=== PATIENT | male | born 1935 | race Caucasian/White ===

== ENCOUNTER → 2016-10-28 | Outpatient (CLI) | payer MEDICARE, BC ==
--- NOTE | 2016-10-28 13:06 | RADIOLOGY REPORT (SQ) ---
EXAM DESCRIPTION: VENOUS UNILATERAL LOWER COMPLETED DATE/TIME: 10/28/2016 12:54 pm REASON FOR STUDY: RLE PAIN, SWELLING M79.604 PAIN IN RIGHT LEG COMPARISON: None. TECHNIQUE: Dynamic and static dias scale and color images acquired of the right leg venous system. S elected spectral images acquired with additional compression and augmentation maneuvers. The contrala teral common femoral vein and saphenofemoral junction were also imaged. Images stored on PACS. LIMITATIONS: None. FINDINGS: RIGHT COMMON FEMORAL: Normal phasicity, compression and augmentation. No visualized echogenic material on g ray scale. No defects on color images. FEMORAL: Normal compression and augmentation. No visualized echogenic material on dias scale. No defe cts on color images. POPLITEAL: Normal compression, augmentation. No visualized echogenic material on dias scale. No defec ts on color images. CALF VESSELS: Normal compression, augmentation. No visualized echogenic material on dias scale. No de fects on color images. GSV : Normal compression, augmentation. No visualized echogenic material on dias scale. No defects on color images. LSV: The lesser saphenous vein in the calf demonstrates flow. There is echogenic material in the hudson men of the vein which has a characteristic appearance for recannulized chronic thrombus. ANY DEEP VENOUS INSUFFICIENCY: Not evaluated. ANY EVIDENCE OF POPLITEAL CYST: No. OTHER: No other significant finding. LEFT COMMON FEMORAL VEIN AND SAPHENOFEMORAL JUNCTION: Normal phasicity, compression and augmentation. No visualized echogenic material on dias scale. No de fects on color images. IMPRESSION: NO EVIDENCE OF ACUTE DVT OR SVT IN THE RIGHT LEG. TECHNICAL DOCUMENTATION: JOB ID: [id number] [employer]- All Rights Reserved
[2016-10-28 14:31] LABS: ALBUMIN 3.5 g/dL (3.5-5.0); ANION GAP 14 (5-19); BLOOD UREA NITROGEN 15 mg/dL (7-20); CALCIUM 8.3 mg/dL (8.4-10.2); CARBON DIOXIDE 33 mmol/L (22-30); CHLORIDE 91 mmol/L (98-107); CREATININE RESULT 1.37 mg/dL (0.52-1.25); GLUCOSE 115 mg/dL (75-110); PHOSPHORUS 2.1 mg/dL (2.5-4.5); SODIUM 138.2 mmol/L (137-145)
[2016-10-28 14:39] LABS: POTASSIUM 2.9 mmol/L (3.6-5.0)
== END ==
LOC: SP 11:52
PROVIDERS: ATTEND Physician Assistant
DX: M79.604 Pain in right leg (principal); E87.6 Hypokalemia; J90 Pleural effusion, not elsewhere classified
CPT/HCPCS: 36415; 80069; 93971

== ENCOUNTER → 2017-01-08 | Outpatient (CLI) | payer MEDICARE, BC ==
--- NOTE | 2017-01-08 13:45 | RADIOLOGY REPORT (SQ) ---
EXAM DESCRIPTION: NM WHOLE BODY BONE SCAN COMPLETED DATE/TIME: 01/08/2017 12:44 pm REASON FOR STUDY: PROSTATE CA (C61), ELEVATED PSA (R97.20) C61 MALIGNANT NEOPLASM OF PROSTATE COMPARISON: Two-view chest 02/28/2016 RADIONUCLIDE AND DOSE: 19.7 millicuries Tc99m MDP. The route of agent administration: Intravenous. ADDITIONAL DRUGS AND DOSES: None. TECHNIQUE: Routine delayed images at 3 hours post radionuclide injection acquired of the bony skelet on including anterior and posterior whole-body projections and additional focused images as needed. LIMITATIONS: None. FINDINGS: BONES: There are multiple foci of abnormal increased uptake throughout the calvarium, bila teral proximal humeri, ribs, manubrium sternum, thoracic and lumbar spine, bony pelvis, bilateral pro ximal femurs. These are worrisome for metastatic prostate carcinoma. KIDNEYS: Symmetric excretion without obstruction. OTHER: No other significant finding. IMPRESSION: Multiple foci of increased uptake throughout the skeleton compatible with metastatic dis ease COMMENT: Quality measure 147: Current bone scan is compared with any available plain radiographs, p rior bone scans, and CT/MRI. TECHNICAL DOCUMENTATION: JOB ID: [id number] [employer]- All Rights Reserved
== END ==
LOC: RAD 08:23
PROVIDERS: ATTEND Radiology Radiation Oncology
DX: C61 Malignant neoplasm of prostate (principal); R97.20 Elevated prostate specific antigen [PSA]
CPT/HCPCS: 78306; A9561; Q9969

== ENCOUNTER 2017-01-11 15:32 | Inpatient (IN) | payer MEDICARE, BC ==
[2017-01-11] MEDS ORDERED: NORMAL SALINE 1000 ML 1,000 ML IV PRN (15:41)
[2017-01-11] MEDS ORDERED: ONDANSETRON HCL INJ/PF 4 MG/2 ML SDV IV ONE (15:41)
--- NOTE | 2017-01-11 15:45 | ER Document Report ---
ED Medical Screen (RME) - General Chief Complaint: Nausea Stated Complaint: NAUSEA,WEAKNESS Time Seen by Provider: 01/11/17 15:41 Mode of Arrival: Wheelchair Information source: Patient TRAVEL OUTSIDE OF THE [place] IN LAST 30 DAYS: No - HPI Patient complains to provider of: Nausea, confusion Notes: 01/11/17 15:45 Patient is an 82-year-old male with a history of COPD as well as prostate cancer with bone metastases, who presents to the emergency room today complaining of nausea, he denies any vomiting, denies any pain, no fever or chills, patient appears to be somewhat confused in the triage area as he is slow to answer questions and at times just stares at me, no family members have accompanied him to the emergency room as of yet 01/11/17 15:50 Patient sister is now in the emergency room and reports that for the last 3-4 days patient has not been eating or drinking very much, he appears more pale than usual, and when they went to see the radiation oncologist today he recommended that patient be brought to the emergency room as he was diaphoretic , pale and complaining of nausea, he has also lost a couple of pounds in the last week - Related Data Allergies/Adverse Reactions: promethazine HCl [From Phenergan] Adverse Reaction (Verified 01/11/17 15:39) Altered mental status Past Medical History - Past Medical History Cardiac Medical History: Reports: Hx Atrial Fibrillation - rvr, Hx Congestive Heart Failure, Hx Coronary Artery Disease, Hx Heart Attack, Hx Hypercholesterolemia, Hx Hypertension, Hx Peripheral Vascular Disease Denies: Hx DVT, Hx Pulmonary Embolism, Hx Heart Murmur Pulmonary Medical History: Reports: Hx Bronchitis, Hx COPD, Hx Pneumonia Denies: Hx Asthma, Hx Respiratory Failure, Hx Sleep Apnea, Hx Tuberculosis Neurological Medical History: Denies: Hx Cerebrovascular Accident, Hx Seizures Endocrine Medical History: Denies: Hx Diabetes Mellitus Type 1, Hx Diabetes Mellitus Type 2, Hx Hyperthyroidism, Hx Hypothyroidism Renal/ Medical History: Reports: Hx Kidney Stones. 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 GI Medical History: Denies: Hx Cirrhosis, Hx Crohn's Disease, Hx Gastroesophageal Reflux Disease, Hx Hepatitis, Hx Hiatal Hernia, Hx Irritable Bowel, Hx Liver Failure, Hx Ulcer Musculoskeltal Medical History: Denies Hx Arthritis, Denies Hx Multiple Sclerosis Psychiatric Medical History: Denies: Hx Dementia, Hx Depression Infectious Medical History: Reports: Hx MRSA - History of MRSA pneumonia. Denies: Hx Hepatitis Past Surgical History: Reports: Hx Abdominal Surgery - hernia, Hx Cardiac Surgery - Pacemaker August 2011, bypass, Hx Cholecystectomy, Hx Coronary Artery Bypass Graft, Hx Herniorrhaphy, Hx Inguinal Hernia, Hx Pacemaker. Denies: Hx Appendectomy, Hx Bowel Surgery, Hx Colostomy, Hx Gastric Bypass Surgery, Hx Tonsillectomy - Immunizations Immunizations up to date: Yes Hx Diphtheria, Pertussis, Tetanus Vaccination: Yes Physical Exam - Vital signs Vitals: Temp Pulse Resp BP Pulse Ox 97.4 F 72 22 H 98/65 L 94 01/11/17 15:37 01/11/17 15:37 01/11/17 15:37 01/11/17 15:37 01/11/17 15:37 Course - Vital Signs Vital signs: Temp Pulse Resp BP Pulse Ox 97.4 F 72 22 H 98/65 L 94 01/11/17 15:37 01/11/17 15:37 01/11/17 15:37 01/11/17 15:37 01/11/17 15:37
[2017-01-11 16:26] LABS: VENOUS BLOOD BASE EXCESS -2.6 mmol/L; VENOUS BLOOD HCO3 22.4 mmol/L (20-32); VENOUS BLOOD PCO2 39.6 mmHg (35-63); VENOUS BLOOD PH 7.37 (7.30-7.42)
[2017-01-11 16:27] LABS: ABSOLUTE LYMPHOCYTES (AUTO) 0.7 10^3/uL (0.5-4.7); ABSOLUTE MONOCYTES (AUTO) 0.9 10^3/uL (0.1-1.4); ABSOLUTE NEUT (AUTO) 9.3 10^3/uL (1.7-8.2); BASOPHILS % (AUTO) 0.3 % (0-2); EOSINOPHILS % (AUTO) 0.4 % (0-6); HEMATOCRIT 33.4 % (37.9-51.0); HEMOGLOBIN 10.9 g/dL (13.5-17.0); HGB HCT DIFFERENCE -0.7; LYMPHOCYTES % (AUTO) 6.3 % (13-45); MEAN CORPUSCULAR HEMOGLOBIN 30.5 pg (27.0-33.4); MEAN CORPUSCULAR HGB CONC 32.5 g/dL (32.0-36.0); MEAN CORPUSCULAR VOLUME 94 fl (80-97); MONOCYTES % (AUTO) 8.2 % (3-13); RED BLOOD COUNT 3.56 10^6/uL (4.35-5.55); RED CELL DISTRIBUTION WIDTH 21.6 % (11.5-14.0); SEGMENTED NEUTROPHILS % (AUTO) 84.8 % (42-78)
[2017-01-11 16:46] LABS: ALANINE AMINOTRANSFERASE 33 U/L (21-72); ALBUMIN 3.6 g/dL (3.5-5.0); ALKALINE PHOSPHATASE 376 U/L (38-126); ANION GAP 13 (5-19); ASPARTATE AMINO TRANSFERASE 135 U/L (17-59); BILIRUBIN,DIRECT 0.7 mg/dL (0.0-0.4); BILIRUBIN,TOTAL 1.2 mg/dL (0.2-1.3); BLOOD UREA NITROGEN 31 mg/dL (7-20); CALCIUM 8.6 mg/dL (8.4-10.2); CARBON DIOXIDE 22 mmol/L (22-30); CHLORIDE 96 mmol/L (98-107); CREATININE RESULT 1.66 mg/dL (0.52-1.25); GLUCOSE 115 mg/dL (75-110); LIPASE 96.5 U/L (23-300); POTASSIUM 4.4 mmol/L (3.6-5.0); SODIUM 130.8 mmol/L (137-145); TOTAL PROTEIN 7.7 g/dL (6.3-8.2)
--- NOTE | 2017-01-11 17:23 | ER Document Report ---
ED General - General Mode of Arrival: Wheelchair Information source: Patient TRAVEL OUTSIDE OF THE [place] IN LAST 30 DAYS: No <FABI JERNIGAN - Last Filed: 01/11/17 20:36> <BLANCA HAM - Last Filed: 01/12/17 00:39> - General Chief Complaint: Nausea Stated Complaint: NAUSEA,WEAKNESS Time Seen by Provider: 01/11/17 15:41 Notes: Patient is a an 82-year-old male who presents to the emergency department today after being referred here by his oncologist after not looking well in the office today. Patient was confused and diaphoretic in the office. History is limited secondary to the patient's mental status. (FABI JERNIGAN) - Related Data Allergies/Adverse Reactions: promethazine HCl [From Phenergan] Adverse Reaction (Verified 01/11/17 15:39) Altered mental status Home Medications: Current Home Medications Atorvastatin Calcium [Lipitor 40 mg Tablet] 40 mg PO QHS 01/11/17 [History] Calcium Carbonate/Vitamin D3 [Calcium 600 + Vit D 400 Tablet] 1 tab PO DAILY 03/19 [History] Hydrochlorothiazide [Hydrodiuril 25 mg Tablet] 25 mg PO QAM 01/11/17 [History] Metoprolol Tartrate [Lopressor 100 mg Tablet] 100 mg PO DAILY 01/11/17 [History] Multivitamin/Iron/Folic Acid [Centrum Adults Tablet] 1 each PO DAILY 01/11/17 [ History] Omeprazole 20 mg PO QPM 01/11/17 [History] Potassium Chloride [K-Tab ER] 20 meq PO BID 01/11/17 [History] Spironolactone [Aldactone 25 mg Tablet] 25 mg PO QAM 01/11/17 [History] Warfarin Sodium [Coumadin 5 mg Tablet] 5 mg PO QHS 01/11/17 [History] Past Medical History - General Information source: Patient - Social History Smoking Status: Never Smoker Cigarette use (# per day): No Chew tobacco use (# tins/day): No Frequency of alcohol use: None Drug Abuse: None Lives with: Family Family History: Reviewed & Not Pertinent, Hypertension - Past Medical History Cardiac Medical History: Reports: Hx Atrial Fibrillation - rvr, Hx Congestive Heart Failure, Hx Coronary Artery Disease, Hx Heart Attack, Hx Hypercholesterolemia, Hx Hypertension, Hx Peripheral Vascular Disease Pulmonary Medical History: Reports: Hx Bronchitis, Hx COPD, Hx Pneumonia Renal/ Medical History: Reports: Hx Kidney Stones Malignancy Medical History: Reports Hx Bone Cancer - METS FROM PROSTATE, Reports Hx Prostate Cancer, Reports Hx Skin Cancer - Prior excision of several skin cancers. Infectious Medical History: Reports: Hx MRSA - History of MRSA pneumonia Past Surgical History: Reports: Hx Abdominal Surgery - hernia, Hx Cardiac Surgery - Pacemaker August 2011, bypass, Hx Cholecystectomy, Hx Coronary Artery Bypass Graft, Hx Herniorrhaphy, Hx Inguinal Hernia, Hx Pacemaker - Immunizations Immunizations up to date: Yes Hx Diphtheria, Pertussis, Tetanus Vaccination: Yes Hx Pneumococcal Vaccination: 05/03/09 <FABI JERNIGAN - Last Filed: 01/11/17 20:36> Review of Systems - Review of Systems -: Yes ROS unobtainable due to patient's medical condition - confused <FABI JERNIGAN - Last Filed: 01/11/17 20:36> Physical Exam <FABI JERNIGAN - Last Filed: 01/11/17 20:36> <BLANCA HAM - Last Filed: 01/12/17 00:39> - Vital signs Vitals: Temp Pulse Resp BP Pulse Ox 97.4 F 72 22 H 98/65 L 94 01/11/17 15:37 01/11/17 15:37 01/11/17 15:37 01/11/17 15:37 01/11/17 15:37 - Notes Notes: Physical Exam: General: Alert. Chronically ill appearing. HEENT: Normocephalic. Atraumatic. PERRL. Extraocular movements intact. Oropharynx clear. Dry mucous membranes. Neck: Supple. Non-tender. Respiratory: No respiratory distress. Clear and equal breath sounds bilaterally. Cardiovascular: Regular rate and rhythm. Abdominal: Normal Inspection. Non-tender. No distension. Normal Bowel Sounds. Back: Non-tender. No deformity or step off. Extremities: Moves all four extremities. Upper extremities: Normal inspection. Normal ROM. Lower extremities: Normal inspection. No edema. Normal ROM. Neurological: Unable to state the date or where he is located, disoriented to time and place. Psychological: Normal affect. Normal Mood. Skin: Warm. Dry. Normal color. (FABI JERNIGAN) Course - Laboratory Result Diagrams: 01/11/17 16:21 01/11/17 16:21 <DELONFABI - Last Filed: 01/11/17 20:36> - Laboratory Result Diagrams: 01/11/17 16:21 01/11/17 16:21 - Diagnostic Test Radiology reviewed: Reports reviewed <BLANCA HAM - Last Filed: 01/12/17 00:39> - Re-evaluation Re-evalutation: 01/11 Patient is an 82-year-old male who with a history of prostate cancer who presents today with apparent nausea at home and confusion. The patient is alone in the room at the time that I am seeing him with no family present. The patient has no complaints. He does not know why he is here. He does not remember being sent in from his oncologist office. Patient did not have any abdominal pain and states that he is not nauseated currently. Patient with acute renal insufficiency and hypo-natremia. No evidence for infection at this time. Patient was hypotensive on presentation. Patient with no acute findings on abdominal series and no evidence for obstruction. No evidence for infection on chest x-ray or urine. However, due to the patient's symptoms and what is acute confusion, patient will be admitted for further evaluation at this time to the hospitalist service. (BLANCA HAM) - Vital Signs Vital signs: Temp Pulse Resp BP Pulse Ox 97.4 F 70 18 130/85 H 100 01/11/17 21:20 01/11/17 21:20 01/11/17 21:20 01/11/17 21:20 01/11/17 21:20 - Laboratory Laboratory results interpreted by me: 01/11/17 01/11/17 01/11/17 16:15 16:21 16:21 WBC 11.0 H RBC 3.56 L Hgb 10.9 L Hct 33.4 L RDW 21.6 H Plt Count 101 L Seg Neutrophils % 84.8 H Lymphocytes % 6.3 L Absolute Neutrophils 9.3 H Sodium 130.8 L Chloride 96 L BUN 31 H Creatinine 1.66 H Est GFR ( Amer) 48 L Est GFR (Non-Af Amer) 40 L Glucose 115 H Direct Bilirubin 0.7 H AST 135 H Alkaline Phosphatase 376 H Creatine Kinase 345 H Urine Protein Urine Blood 01/11/17 17:30 WBC RBC Hgb Hct RDW Plt Count Seg Neutrophils % Lymphocytes % Absolute Neutrophils Sodium Chloride BUN Creatinine Est GFR ( Amer) Est GFR (Non-Af Amer) Glucose Direct Bilirubin AST Alkaline Phosphatase Creatine Kinase Urine Protein 100 H Urine Blood SMALL H Discharge <FABI JERNIGAN - Last Filed: 01/11/17 20:36> - Discharge Admitting Provider: Hospitalist - [facility] Admitted: [facility] <BLANCA HAM - Last Filed: 01/12/17 00:39> - Discharge Clinical Impression: Encephalopathy acute ARF (acute renal failure) Qualifiers: Acute renal failure type: unspecified Qualified Code(s): N17.9 - Acute kidney failure, unspecified Condition: Stable Disposition: ADMITTED INPATIENT Scribe Attestation: 01/12/17 00:39 I personally performed the services described in the documentation, reviewed and edited the documentation which was dictated to the scribe in my presence, and it accurately records my words and actions. (BLANCA HAM) Scribe Documentation - Scribe Written by Carissa:: Carissa Nicole, 01/11/20172055 acting as scribe for :: Madeleine <FABI JERNIGAN - Last Filed: 01/11/17 20:36>
--- NOTE | 2017-01-11 17:51 | RADIOLOGY REPORT (SQ) ---
EXAM DESCRIPTION: CT HEAD WITHOUT COMPLETED DATE/TIME: 01/11/2017 5:38 pm REASON FOR STUDY: confusion, vomiting COMPARISON: July 2015 TECHNIQUE: Axial images acquired through the brain without intravenous contrast. Images reviewed wi th bone, brain and subdural windows. Images stored on PACS. All CT scanners at this facility use dose modulation, iterative reconstruction, and/or weight based d osing when appropriate to reduce radiation dose to as low as reasonably achievable (ALARA). [facility]: Dose Right [facility]: CareDose [facility]: Dose Right [facility]: Teradose 4D [facility]: yourdelivery RADIATION DOSE: Up-to-date CT equipment and radiation dose reduction techniques were employed. CTDIv ol: 64.6 mGy. DLP: 1163 mGy-cm.mGy. LIMITATIONS: None. FINDINGS: VENTRICLES: Prominent. CEREBRUM: No masses. No hemorrhage. No midline shift. Areas of low density in the white matter mos t likely due to chronic micro-vascular ischemic change. No evidence for acute infarction. CEREBELLUM: No masses. No hemorrhage. No alteration of density. No evidence for acute infarction. EXTRAAXIAL SPACES: Age-related involutional change. No fluid collections. No masses. ORBITS AND GLOBE: No intra- or extraconal masses. Normal contour of globe without masses. CALVARIUM: No fracture. PARANASAL SINUSES: No fluid or mucosal thickening. SOFT TISSUES: No mass or hematoma. OTHER: No other significant finding. IMPRESSION: CHRONIC CHANGES OF ATROPHY AND MICROVASCULAR ISCHEMIA. NO ACUTE PROCESS. TECHNICAL DOCUMENTATION: JOB ID: [id number] Quality ID # [id number]: Final reports with documentation of one or more dose reduction techniques (e.g., Au tomated exposure control, adjustment of the mA and/or kV according to patient size, use of iterative reconstruction technique) 2010 [employer]- All Rights Reserved
[2017-01-11 17:52] LABS: APPEARANCE,URINE SLIGHTLY-CLOUDY; BILIRUBIN,URINE NEGATIVE (NEGATIVE); GLUCOSE, URINE NEGATIVE (NEGATIVE); KETONES,URINE NEGATIVE (NEGATIVE); LEUKOCYTE ESTERASE,URINE NEGATIVE (NEGATIVE); NITRITE,URINE NEGATIVE (NEGATIVE); PROTEIN,URINE 100 mg/dL (NEGATIVE); URINE SPECIFIC GRAVITY 1.015; UROBILINOGEN,URINE NEGATIVE mg/dL (<2.0)
--- NOTE | 2017-01-11 17:59 | RADIOLOGY REPORT (SQ) ---
EXAM DESCRIPTION: ACUTE ABDOMEN SERIES COMPLETED DATE/TIME: 01/11/2017 5:50 pm REASON FOR STUDY: hypotension, vomiting COMPARISON: 07/18/2015 NUMBER OF VIEWS: Three views. TECHNIQUE: Frontal chest, supine abdomen and upright abdomen radiographic images acquired. LIMITATIONS: None. FINDINGS: CHEST: Lungs clear of infiltrates. FREE AIR: None. No abnormal gas collections. BOWEL GAS PATTERN: Nonobstructive pattern. No dilated loops or air fluid levels. CALCIFICATIONS: No suspicious calcifications. HARDWARE: None in the abdomen. SOFT TISSUES: No gross mass or suggestion of organomegaly. BONES: Stable densely sclerotic bone lesions are present. OTHER: No other significant finding. IMPRESSION: Nonspecific abdomen. Densely sclerotic bone lesions that appear stable. TECHNICAL DOCUMENTATION: JOB ID: [id number] [employer]- All Rights Reserved
[2017-01-11 18:04] LABS: CREATINE KINASE MB 3.38 ng/mL (<4.55)
[2017-01-11 18:08] LABS: TROPONIN I 0.086 ng/mL
[2017-01-11] MEDS ORDERED: ACETAMINOPHEN 325 MG TABLET PO PRN (18:46)
--- NOTE | 2017-01-11 19:05 | PDOC H&P ---
History of Present Illness Admission Date/PCP: 01/11/17 18:20 SHAD REYNA MD Patient complains of: Poor appetite History of Present Illness: SONNY SNOWDEN is a 82 year old male who presents to our emergency room with complaints of decreased eating and drinking for the last few days. Patient is a poor historian and no one is in room. History obtained from nurse. Nurse states that sister reported that patient has not been eating for the last few days and she has noticed that he has been more confused. Nurse reports that sister states that he is confused regularly but it has worsened over the last few days. ER physician who did not know much about patient's presentation reported that patient presented to the Rad Onc physician where he noticed that patient did not appear well. ER physician states that patient was directed to the emergency room. ER physician notes that patient's creatinine is elevated from his baseline. She also notes that patient is not able to give much history. Patient was aware that he was in the hospital but did not remember how he arrived. Patient was alert and oriented to self and location only. Patient was not able to give year. Patient was able to give date of . Past Medical History Cardiac Medical History: Reports: Atrial Fibrillation - rvr, Congestive Heart Failure, Coronary Artery Disease, Myocardial Infarction, Hyperlipidema, Hypertension, Peripheral Vascular Disease Denies: DVT, Pulmonary Embolism, Heart Murmur Pulmonary Medical History: Reports: Bronchitis, Chronic Obstructive Pulmonary Disease (COPD), Pneumonia Denies: Asthma, Respiratory Failure, Sleep Apnea, Tuberculosis Neurological Medical History: Denies: Seizures Endocrine Medical History: Denies: Diabetes Mellitus Type 1, Diabetes Mellitus Type 2, Hyperthyroidism, Hypothyroidism Renal/ Medical History: Denies: End Stage Renal Disease Malignancy Medical History: Reports: Bone Cancer - METS FROM PROSTATE, Skin Cancer - Prior excision of several skin cancers. 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 Past Surgical History Past Surgical History: Reports: Cholecystectomy, Coronary Artery Bypass Graft, Herniorrhaphy, Pacemaker Denies: Appendectomy, Colostomy, Gastric Bypass Surgery, Tonsillectomy Social History Smoking Status: Never Smoker Frequency of Alcohol Use: None Hx Recreational Drug Use: No Drugs: None Hx Prescription Drug Abuse: No Family History Family History: Hypertension Parental Family History Reviewed: No - Unable to obtain due to patient's mental status Children Family History Reviewed: Unknown Sibling(s) Family History Reviewed.: Unknown Medication/Allergy Allergies/Adverse Reactions: promethazine HCl [From Phenergan] Adverse Reaction (Verified 01/11/17 15:39) Altered mental status Review of Systems ROS unobtainable: Due to mental status, Other - Pt does deny chest pain Physical Exam Vital Signs: Temp Pulse Resp BP Pulse Ox 97.4 F 72 22 H 98/65 L 94 01/11/17 15:37 01/11/17 15:37 01/11/17 15:37 01/11/17 15:37 01/11/17 15:37 General appearance: PRESENT: no acute distress, well-developed, well-nourished Head exam: PRESENT: atraumatic, normocephalic Eye exam: PRESENT: conjunctiva pink, EOMI. ABSENT: scleral icterus Mouth exam: PRESENT: dry mucosa Neck exam: ABSENT: carotid bruit, JVD, lymphadenopathy, thyromegaly Respiratory exam: PRESENT: clear to auscultation navi. ABSENT: rales, rhonchi, wheezes Cardiovascular exam: PRESENT: RRR. ABSENT: diastolic murmur, rubs, systolic murmur Pulses: PRESENT: normal dorsalis pedis pul Vascular exam: PRESENT: normal capillary refill GI/Abdominal exam: PRESENT: normal bowel sounds, soft. ABSENT: distended, guarding, mass, organolmegaly, rebound, tenderness Rectal exam: PRESENT: deferred Extremities exam: PRESENT: full ROM. ABSENT: calf tenderness, clubbing, pedal edema Neurological exam: PRESENT: alert, awake, oriented to person, oriented to place , CN II-XII grossly intact Psychiatric exam: PRESENT: appropriate affect, normal mood. ABSENT: homicidal ideation, suicidal ideation Skin exam: PRESENT: dry, warm Results Impressions: Head CT 01/11/17 17:26 IMPRESSION: CHRONIC CHANGES OF ATROPHY AND MICROVASCULAR ISCHEMIA. NO ACUTE PROCESS. Acute Abdomen Series 01/11/17 17:30 IMPRESSION: Nonspecific abdomen. Densely sclerotic bone lesions that appear stable. Assessment & Plan - Diagnosis (1) ARF (acute renal failure) Qualifiers: Is this a current diagnosis for this admission?: Yes Plan: Acute renal injury in setting of chronic kidney disease stage III: We will give patient IV fluids for volume expansion. Patient has had poor appetite at home. This is most likely related to patient's chronic illness. Patient has known metastatic prostate cancer and has been declining. Will order renal ultrasound to evaluate for possible obstruction. His baseline creatinine is around 1. (2) Dehydration Is this a current diagnosis for this admission?: Yes Plan: Continue with IV fluid administration. (3) Hyponatremia Is this a current diagnosis for this admission?: Yes Plan: Could possibly be secondary to SIADH given the fact the patient has metastatic prostate cancer or secondary to volume depletion. IV fluids and monitor sodium closely. (4) Prostate cancer metastatic to multiple sites Is this a current diagnosis for this admission?: Yes Plan: Per Oncology (5) Elevated LFTs Is this a current diagnosis for this admission?: Yes Plan: We will monitor. (6) Elevated troponin Is this a current diagnosis for this admission?: Yes Plan: Patient is chest pain-free. Elevated troponins are secondary to patient's acute renal injury. Will order additional troponins which should demonstrate decrease in troponins as patient becomes more volume expanded. (7) DVT prophylaxis Is this a current diagnosis for this admission?: Yes Plan: SCDs - Time Time Spent: 30 to 50 Minutes - Patient's CODE STATUS will need to be discussed with family. At time of my encounter there was no family present. Patient currently listed as full code. Patient would also benefit from palliative consult which will be placed. Patient has been placed under observation due to no acute findings except volume depletion. UA/urine culture have been obtained.
[2017-01-12 05:52] LABS: ALANINE AMINOTRANSFERASE 33 U/L (21-72); ALBUMIN 3.1 g/dL (3.5-5.0); ALKALINE PHOSPHATASE 340 U/L (38-126); ANION GAP 11 (5-19); ASPARTATE AMINO TRANSFERASE 115 U/L (17-59); BILIRUBIN,DIRECT 0.7 mg/dL (0.0-0.4); BILIRUBIN,TOTAL 1.1 mg/dL (0.2-1.3); BLOOD UREA NITROGEN 27 mg/dL (7-20); CARBON DIOXIDE 24 mmol/L (22-30); CHLORIDE 98 mmol/L (98-107); CREATINE KINASE 263 U/L (55-170); CREATININE RESULT 1.38 mg/dL (0.52-1.25); GLUCOSE 59 mg/dL (75-110); POTASSIUM 3.8 mmol/L (3.6-5.0); SODIUM 132.7 mmol/L (137-145); TOTAL PROTEIN 6.7 g/dL (6.3-8.2)
[2017-01-12] MEDS: LANSOPRAZOLE 15 MG TAB.RAP.DR PO SCH (06:08)
[2017-01-12 06:23] LABS: THYROID STIMULATING HORMONE 31.7 uIU/mL (0.47-4.68)
[2017-01-12 06:26] LABS: ABSOLUTE EOSINOPHILS # (AUTO) 0.1 10^3/uL (0.0-0.6); ABSOLUTE LYMPHOCYTES (AUTO) 0.8 10^3/uL (0.5-4.7); ABSOLUTE MONOCYTES (AUTO) 0.9 10^3/uL (0.1-1.4); ABSOLUTE NEUT (AUTO) 7.4 10^3/uL (1.7-8.2); BASOPHILS % (AUTO) 0.2 % (0-2); EOSINOPHILS % (AUTO) 0.8 % (0-6); LYMPHOCYTES % (AUTO) 8.7 % (13-45); MEAN CORPUSCULAR HGB CONC 34.6 g/dL (32.0-36.0); MEAN CORPUSCULAR VOLUME 93 fl (80-97); MONOCYTES % (AUTO) 9.5 % (3-13); RED BLOOD COUNT 3.14 10^6/uL (4.35-5.55); RED CELL DISTRIBUTION WIDTH 21.6 % (11.5-14.0); SEGMENTED NEUTROPHILS % (AUTO) 80.8 % (42-78); WHITE BLOOD COUNT 9.1 10^3/uL (4.0-10.5)
[2017-01-12] MEDS ORDERED: LEVOTHYROXINE SODIUM 0.075 MG TABLET PO ONE (09:30)
[2017-01-12] MEDS ORDERED: METOPROLOL TARTRATE 100 MG TABLET PO SCH (10:00)
--- NOTE | 2017-01-12 10:06 | RADIOLOGY REPORT (SQ) ---
EXAM DESCRIPTION: U/S RETROPERITON (RENAL/AORTA) COMPLETED DATE/TIME: 01/12/2017 7:05 am REASON FOR STUDY: Elevated Cr. COMPARISON: Right upper quadrant ultrasound 10/13/2013 CT abdomen pelvis 03/14/2014 [facility] 07/18/2015, 01/11/2017 TECHNIQUE: Dynamic and static grayscale images acquired of the kidneys and bladder and recorded on P ACS. Additional selected color Doppler and spectral images recorded. LIMITATIONS: Large patient, body habitus and bowel gas FINDINGS: RIGHT KIDNEY: Normal size, 12 cm in length. Normal echogenicity. No solid or suspicious ma sses. 2 cm cyst right mid-pole kidney. No hydronephrosis. No calcifications. LEFT KIDNEY: Normal size, 11.2 cm in length. Normal echogenicity. No solid or suspicious masses. 1 cm cyst left mid pole kidney. No hydronephrosis. No calcifications. BLADDER: No masses. OTHER FINDINGS: No other significant finding. IMPRESSION: NORMAL RENAL AND BLADDER ULTRASOUND. TECHNICAL DOCUMENTATION: JOB ID: [id number] [employer]- All Rights Reserved
[2017-01-12 10:33] LABS: PROTHROMBIN TIME 24.2 SEC (11.4-15.4)
[2017-01-12] MEDS: METOPROLOL SUCCINATE 50 MG TAB.SR.24H PO SCH ×2 (10:36→21:37)
[2017-01-12] MEDS: DOCUSATE SODIUM 100 MG CAPSULE PO SCH ×2 (10:36→18:01)
[2017-01-12] MEDS: NORMAL SALINE 1000 ML 1,000 ML IV PRN (16:03)
--- NOTE | 2017-01-12 17:43 | PDOC PROGRESS REPORT ---
Subjective Progress Note for:: 01/12/17 Subjective:: Patient remains quite confused today and is far from his baseline. He is oriented to self alone. He is examined with his sister at the bedside. Patient is noted to be quite tachypneic and he reports that he is a little short of breath. Admits to constipation. Patient denies chest pain, abdominal pain, nausea, vomiting, fevers, chills, diarrhea, headache, new onset weakness. Physical Exam Vital Signs: Temp Pulse Resp BP Pulse Ox 98.0 F 67 16 126/80 H 95 01/12/17 15:47 01/12/17 15:47 01/12/17 15:47 01/12/17 15:47 01/12/17 15:47 Intake & Output 01/11/17 01/12/17 01/13/17 06:59 06:59 06:59 Intake Total 0 300 Output Total 400 Balance 0 -100 Weight 103.4 kg Exam: General: Sallow appearing, awake alert and oriented x1, tachypneic HEENT: AT/NC, PERRL, EOMI, oropharynx is moist,, white plaques on tongue, no scleral icterus, no conjunctival injection Neck: No JVD, trachea midline Chest: Tachypneic, coarse bilaterally CV: IRR, no rub, or gallop; +2/6 SM apex Abdomen: Soft, nontender to palpation, nondistended, hypoactive bowel sounds; no rebound, rigidity, or guarding Extremities: No cyanosis, clubbing or edema Neuro: Cranial nerves II through XII are grossly intact without focal deficits; awake alert and oriented x1 Psych: Normal mood and affect Results Laboratory Results: 01/12/17 04:15 01/12/17 04:15 01/12/17 01/12/17 01/12/17 04:15 04:15 04:15 WBC 9.1 RBC 3.14 L Hgb 10.0 L Hct 29.0 L MCV 93 MCH 32.0 MCHC 34.6 RDW 21.6 H Plt Count 89 L Seg Neutrophils % 80.8 H Lymphocytes % 8.7 L Monocytes % 9.5 Eosinophils % 0.8 Basophils % 0.2 Absolute Neutrophils 7.4 Absolute Lymphocytes 0.8 Absolute Monocytes 0.9 Absolute Eosinophils 0.1 Absolute Basophils 0.0 Sodium 132.7 L Potassium 3.8 Chloride 98 Carbon Dioxide 24 Anion Gap 11 BUN 27 H Creatinine 1.38 H Est GFR ( Amer) > 60 Est GFR (Non-Af Amer) 50 L Glucose 59 L Calcium 8.0 L Total Bilirubin 1.1 AST 115 H ALT 33 Alkaline Phosphatase 340 H Total Protein 6.7 Albumin 3.1 L TSH 31.70 H Free T4 0.28 L 01/11/17 01/11/17 01/12/17 22:11 22:11 04:15 Creatine Kinase 311 H Troponin I 0.053 0.052 01/12/17 01/12/17 01/12/17 04:15 12:36 12:36 Creatine Kinase 263 H 243 H Troponin I 0.046 Impressions: Head CT 01/11/17 17:26 IMPRESSION: CHRONIC CHANGES OF ATROPHY AND MICROVASCULAR ISCHEMIA. NO ACUTE PROCESS. Acute Abdomen Series 01/11/17 17:30 IMPRESSION: Nonspecific abdomen. Densely sclerotic bone lesions that appear stable. Renal Ultrasound 01/12/17 00:00 IMPRESSION: NORMAL RENAL AND BLADDER ULTRASOUND. Assessment & Plan - Diagnosis (1) Pneumonia Qualifiers: Laterality: unspecified laterality Lung location: unspecified part of lung Is this a current diagnosis for this admission?: Yes Plan: Patient has a long history of COPD and prior pseudomonal pneumonias. Patient is quite tachypneic and has apparently been getting more tachypneic over the past several weeks. Now that patient is being rehydrated, have concerns for developing pneumonic process and will begin patient on nebulized treatments and Zosyn. Obtain chest x-ray. (2) Prostate cancer metastatic to multiple sites Is this a current diagnosis for this admission?: Yes Plan: Patient sister who is surrogate decision maker is at bedside and has elected to make him a DNR. Patient was sent from radiation oncology office and is no longer on chemotherapy. Patient has had broad spread of his prostate CA. Will discuss with family the idea of hospice. (3) Hypothyroid Qualifiers: Hypothyroidism type: unspecified Qualified Code(s): E03.9 - Hypothyroidism , unspecified Is this a current diagnosis for this admission?: Yes Plan: Place patient on Synthroid 75 mcg p.o. daily. Will monitor patient on telemetry for his history of atrial fibrillation. Feel that this contributing significantly to his acute encephalopathy. 03/14/14 01/12/17 17:06 04:15 TSH 4.77 H 31.70 H Free T4 0.28 L (4) ARF (acute renal failure) Qualifiers: Acute renal failure type: unspecified Qualified Code(s): N17.9 - Acute kidney failure, unspecified Is this a current diagnosis for this admission?: Yes Plan: Secondary to dehydration. Continue gentle hydration. (5) Dehydration Is this a current diagnosis for this admission?: Yes (6) Elevated LFTs Is this a current diagnosis for this admission?: Yes Plan: Secondary to underlying metastatic lesions from the prostate. (7) Encephalopathy acute Is this a current diagnosis for this admission?: Yes Plan: Multifactorial due to myxedema, sepsis, and metastatic prostate CA. (8) Chronic kidney disease, stage III (moderate) Is this a current diagnosis for this admission?: Yes (9) Anticoagulated on Coumadin Is this a current diagnosis for this admission?: Yes Plan: Continue home dose of Coumadin and monitor daily as patient is now on antibiotics (10) Atrial fibrillation Qualifiers: Atrial fibrillation type: chronic Qualified Code(s): I48.2 - Chronic atrial fibrillation Is this a current diagnosis for this admission?: Yes Plan: Continue metoprolol and Coumadin (11) COPD (chronic obstructive pulmonary disease) Qualifiers: COPD type: unspecified COPD Qualified Code(s): J44.9 - Chronic obstructive pulmonary disease, unspecified Is this a current diagnosis for this admission?: Yes (12) DVT prophylaxis Is this a current diagnosis for this admission?: Yes - Time Time Spent with patient: 35 or more minutes Medications reviewed and adjusted accordingly: Yes Anticipated discharge: Acute Rehab - Inpatient Certification Based on my medical assessment, after consideration of the patient's comorbidities, presenting symptoms, or acuity I expect that the services needed warrant INPATIENT care.: Yes I certify that my determination is in accordance with my understanding of Medicare's requirements for reasonable and necessary INPATIENT services [42 CFR 412.3e].: Yes Medical Necessity: Significant Comorbidiites Make Outpatient Treatment Too Risky , Need For IV Fluids, Need For Continuous Telemetry Monitoring, Need for IV Antibiotics Post Hospital Care: D/C Practice Administrator Documentation
[2017-01-12 18:04] LABS: APPEARANCE,URINE SLIGHTLY-CLOUDY; BILIRUBIN,URINE NEGATIVE (NEGATIVE); GLUCOSE, URINE NEGATIVE (NEGATIVE); KETONES,URINE NEGATIVE (NEGATIVE); LEUKOCYTE ESTERASE,URINE NEGATIVE (NEGATIVE); NITRITE,URINE NEGATIVE (NEGATIVE); PROTEIN,URINE 100 mg/dL (NEGATIVE); URINE SPECIFIC GRAVITY 1.013; UROBILINOGEN,URINE NEGATIVE mg/dL (<2.0)
--- NOTE | 2017-01-12 18:36 | RADIOLOGY REPORT (SQ) ---
EXAM DESCRIPTION: CHEST PA/LAT COMPLETED DATE/TIME: 01/12/2017 6:22 pm REASON FOR STUDY: tachypnea, ?pna COMPARISON: 02/20/2016 EXAM PARAMETERS: NUMBER OF VIEWS: two views TECHNIQUE: Digital Frontal and Lateral radiographic views of the chest acquired. RADIATION DOSE: NA LIMITATIONS: Low lung volumes. FINDINGS: LUNGS AND PLEURA: There is bibasilar atelectasis. No effusions. MEDIASTINUM AND HILAR STRUCTURES: No masses or contour abnormalities. HEART AND VASCULAR STRUCTURES: Heart is enlarged. No failure. BONES: No acute findings. HARDWARE: Unchanged. OTHER: No other significant finding. IMPRESSION: Basilar atelectasis. No focal consolidation. Findings are accentuated by low lung volu mes. TECHNICAL DOCUMENTATION: JOB ID: [id number] [employer]- All Rights Reserved
[2017-01-12] MEDS: NYSTATIN/DEXAMETH/DIPHEN SUSP 120 ML PO SCH ×2 (18:42→21:37)
[2017-01-12] MEDS: ONDANSETRON 4 MG TAB.RAPDIS PO PRN (19:06)
[2017-01-12] MEDS: PIPERACILLIN SODIUM/TAZOBACTAM 4.5 GM in NORMAL SALINE 100 ML IV SCH (21:36)
[2017-01-12] MEDS: ATORVASTATIN CALCIUM 40 MG TABLET PO SCH (21:37)
[2017-01-12] MEDS: WARFARIN SODIUM 5 MG TABLET PO SCH (21:37)
[2017-01-13] MEDS: PIPERACILLIN SODIUM/TAZOBACTAM 4.5 GM in NORMAL SALINE 100 ML IV SCH ×3 (02:56→18:52)
[2017-01-13] MEDS: LEVOTHYROXINE SODIUM 0.075 MG TABLET PO SCH (05:14)
[2017-01-13] MEDS: LANSOPRAZOLE 15 MG TAB.RAP.DR PO SCH (05:14)
[2017-01-13] MEDS: METOPROLOL SUCCINATE 50 MG TAB.SR.24H PO SCH ×2 (10:38→22:12)
[2017-01-13] MEDS: DOCUSATE SODIUM 100 MG CAPSULE PO SCH ×2 (10:38→18:11)
[2017-01-13] MEDS: NYSTATIN/DEXAMETH/DIPHEN SUSP 120 ML PO SCH ×4 (10:39→22:12)
[2017-01-13] MEDS ORDERED: DEXAMETHASONE SOD PHOS INJ 10 MG/1 ML VIAL IV ONE ×2 (14:46→19:00)
[2017-01-13] MEDS ORDERED: IPRATROPIUM/ALBUTEROL 0.5-2.5 MG/3 ML AMPUL NEB PRN (15:00)
[2017-01-13] MEDS: TRAMADOL HCL 50 MG TABLET PO SCH (18:11)
--- NOTE | 2017-01-13 18:20 | PDOC PROGRESS REPORT ---
Subjective Progress Note for:: 01/13/17 Subjective:: Met with patient's son and sister to discuss his overall prognosis and care. Family reports to me that patient continues to have a significant amount of pain during which time he will pray loudly or moaning quite loudly. He however very rarely will ask for anything for pain. He did however ask them for that one pill. He apparently takes some tramadol at home. Patient remains quite confused today. He appears to be breathing somewhat better. He reports in general that he feels bad. He is really unable to quantify this for me. Patient denies chest pain, abdominal pain, nausea, vomiting, fevers, chills, diarrhea, headache, new onset weakness. Physical Exam Vital Signs: Temp Pulse Resp BP Pulse Ox 97.9 F 70 18 134/66 H 98 01/13/17 16:15 01/13/17 16:15 01/13/17 16:15 01/13/17 16:15 01/13/17 16:15 Intake & Output 01/12/17 01/13/17 01/14/17 06:59 06:59 06:59 Intake Total 0 1475 900 Output Total 400 200 Balance 0 1075 700 Weight 103.4 kg 103.4 kg Exam: General: Sallow appearing, awake alert and oriented x1, mildly tachypneic HEENT: AT/NC, PERRL, EOMI, oropharynx is moist, white plaques on tongue, no scleral icterus, no conjunctival injection Neck: No JVD, trachea midline Chest: Tachypneic, mild retractions, occasional rhonchi CV: IRR, no rub, or gallop; +2/6 SM apex Abdomen: Soft, nontender to palpation, distended, hypoactive bowel sounds; no rebound, rigidity, or guarding Extremities: No cyanosis, clubbing or edema Neuro: Cranial nerves II through XII are grossly intact without focal deficits; awake alert and oriented x1 Psych: Normal mood and affect Results Laboratory Results: 01/12/17 04:15 01/12/17 04:15 01/12/17 01:00 Nasophary (Mrsa Only) MRSA Surveillance Culture - Final NO MRSA RECOVERED 01/11/17 01/11/17 01/12/17 22:11 22:11 04:15 Creatine Kinase 311 H Troponin I 0.053 0.052 01/12/17 01/12/17 01/12/17 04:15 12:36 12:36 Creatine Kinase 263 H 243 H Troponin I 0.046 01/12/17 01/12/17 18:45 18:45 Creatine Kinase 239 H Troponin I 0.052 Impressions: Head CT 01/11/17 17:26 IMPRESSION: CHRONIC CHANGES OF ATROPHY AND MICROVASCULAR ISCHEMIA. NO ACUTE PROCESS. Acute Abdomen Series 01/11/17 17:30 IMPRESSION: Nonspecific abdomen. Densely sclerotic bone lesions that appear stable. Chest X-Ray 01/12/17 00:00 IMPRESSION: Basilar atelectasis. No focal consolidation. Findings are accentuated by low lung volumes. Renal Ultrasound 01/12/17 00:00 IMPRESSION: NORMAL RENAL AND BLADDER ULTRASOUND. Assessment & Plan - Diagnosis (1) Pneumonia Qualifiers: Laterality: unspecified laterality Lung location: unspecified part of lung Is this a current diagnosis for this admission?: Yes Plan: Patient has a long history of COPD and prior pseudomonal pneumonias. Patient appears slightly improved after initiation of Zosyn, but is far from baseline respiratory moseley. Have initiated scheduled nebulized treatments and sputum has been sent and is currently revealing gram-positive rods, gram- positive cocci in pairs, gram-negative diplococci, yeast. Suspect some of this will be normal mouth augusto, but concern for underlying infection still exists. Patient continues to require inpatient status for IV antibiotics and nebulized treatments. Patient is currently pending the results of his sputum culture. (2) Prostate cancer metastatic to multiple sites Is this a current diagnosis for this admission?: Yes Plan: Patient is now a DNR. Patient is no longer on chemotherapy. Patient is also no longer receiving radiation therapy. Patient has had broad spread of his prostate CA. At this time, they are not amenable to the idea of hospice. Will initiate patient on IV Decadron and tramadol for his bone pain. Patient has had prior difficulties with narcotic pain medication causing encephalopathy. (3) Hypothyroid Qualifiers: Hypothyroidism type: unspecified Qualified Code(s): E03.9 - Hypothyroidism , unspecified Is this a current diagnosis for this admission?: Yes Plan: Place patient on Synthroid 75 mcg p.o. daily. Will monitor patient on telemetry for his history of atrial fibrillation. Feel that this contributing significantly to his acute encephalopathy. Consider one-time dose of IV Synthroid. 03/14/14 01/12/17 17:06 04:15 TSH 4.77 H 31.70 H Free T4 0.28 L (4) ARF (acute renal failure) Qualifiers: Acute renal failure type: unspecified Qualified Code(s): N17.9 - Acute kidney failure, unspecified Is this a current diagnosis for this admission?: Yes Plan: Secondary to dehydration. Improved with gentle hydration. (5) Dehydration Is this a current diagnosis for this admission?: Yes (6) Elevated LFTs Is this a current diagnosis for this admission?: Yes (7) Encephalopathy acute Is this a current diagnosis for this admission?: Yes Plan: Multifactorial due to myxedema, sepsis, and metastatic prostate CA. (8) Chronic kidney disease, stage III (moderate) Is this a current diagnosis for this admission?: Yes (9) Anticoagulated on Coumadin Is this a current diagnosis for this admission?: Yes (10) Atrial fibrillation Qualifiers: Atrial fibrillation type: chronic Qualified Code(s): I48.2 - Chronic atrial fibrillation Is this a current diagnosis for this admission?: Yes (11) COPD (chronic obstructive pulmonary disease) Qualifiers: COPD type: unspecified COPD Qualified Code(s): J44.9 - Chronic obstructive pulmonary disease, unspecified Is this a current diagnosis for this admission?: Yes Plan: Have placed patient on Decadron and will consider Solu-Medrol. (12) DVT prophylaxis Is this a current diagnosis for this admission?: Yes - Time Time Spent with patient: 35 or more minutes Medications reviewed and adjusted accordingly: Yes Anticipated discharge: Acute Rehab
[2017-01-13] MEDS: DEXAMETHASONE SOD PHOSPHATE INJ 4 MG/1 ML VIAL IV SCH (18:52)
[2017-01-13] MEDS ORDERED: PIPERACILLIN SODIUM/TAZOBACTAM 4.5 GM in DEXTROSE 5%-WATER 100 ML IV ONE (19:00)
[2017-01-13] MEDS: IPRATROPIUM/ALBUTEROL 0.5-2.5 MG/3 ML AMPUL NEB SCH (20:30)
[2017-01-13] MEDS ORDERED: PIPERACILLIN SODIUM/TAZOBACTAM 4.5 GM in DEXTROSE 5%-WATER 100 ML IV SCH (21:00)
[2017-01-13] MEDS ORDERED: PIPERACILLIN SODIUM/TAZOBACTAM 4.5 GM in NORMAL SALINE 100 ML IV SCH (21:00)
[2017-01-13] MEDS: WARFARIN SODIUM 5 MG TABLET PO SCH (22:12)
[2017-01-13] MEDS: ATORVASTATIN CALCIUM 40 MG TABLET PO SCH (22:12)
--- NOTE | 2017-01-14 00:07 | Palliative Consultation Report ---
Consultation From:: ISIDRO CASILLAS - [facility] HPI: Palliative care consultation visit with patient, son and patients sister 01/13/17 1:25- 2: 30 PM Appreciate palliative referral for this 82 year old man who has been battling prostate cancer for many years with many different medications. 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 He also has been diagnosed with severe hypothyroidism, possible metastasis to liver with elevated LFT's, Atrial fib on warfarin, COPD, and CRD. He was sent to ER from radiation oncology due to changes in mental status and he was admitted.. Mr. James is awake, alert and cheerful. He talked with me at length and denied any pain or nausea. He does not appear anxious and is enjoying the company he has at bedside. Although he now denies pain, his son and sister said he prays for pain to stop when no staff in room. Apparently is having pain in many places. I talked with Mr. James's sister and son at length about options for care after discharge. Patient has been living alone, but he is too weak to contiue to do that. His son lives next door but he works and cannot care for the patient. His sister lives across the street, but she cannot care for the patient either. We discussed hiring people to [facility] with his care and problems/ cost with this. We talked about SNF for rehab and possibly senior care care. I advised them to file Medicaid application as soon as possible. Hospice support offered also in case family decides to take patient home. Patient has been talking a lot with no dyspnea and appears fairly well oriented in spite of confusion nted last few days. Onset: Just prior to arrival Onset/Duration: Persistent Quality of Pain: Achy Severity: None Pain Level: Denies Context: Denies, but family states he c/o pain when staff not present. Past Medical History(Consults) - General Information Source: Patient, Relative, [facility] Records Home Medications: Atorvastatin Calcium [Lipitor 40 mg Tablet] 40 mg PO QHS 01/11/17 Calcium Carbonate/Vitamin D3 [Calcium 600 + Vit D 400 Tablet] 1 tab PO DAILY 03/19 Hydrochlorothiazide [Hydrodiuril 25 mg Tablet] 25 mg PO QAM 01/11/17 Metoprolol Tartrate [Lopressor 100 mg Tablet] 100 mg PO DAILY 01/11/17 Multivitamin/Iron/Folic Acid [Centrum Adults Tablet] 1 each PO DAILY 01/11/17 Omeprazole 20 mg PO QPM 01/11/17 Potassium Chloride [K-Tab ER] 20 meq PO BID 01/11/17 Spironolactone [Aldactone 25 mg Tablet] 25 mg PO QAM 01/11/17 Warfarin Sodium [Coumadin 5 mg Tablet] 5 mg PO QHS 01/11/17 Allergies/Adverse Reactions: promethazine HCl [From Phenergan] Adverse Reaction (Verified 01/11/17 15:39) Altered mental status - Social History Lives with: Alone, Family Family History: None, Reviewed & Not Pertinent, Hypertension Parental Family History Reviewed: No Children Family History Reviewed: No Sibling(s) Family History Reviewed.: No Smoking Status: Never Smoker Frequency of Alcohol Use: None Hx Recreational Drug Use: No Drugs: None Hx Prescription Drug Abuse: No - Past Medical History Cardiac Medical History: Reports: Hx Atrial Fibrillation - rvr, Hx Congestive Heart Failure, Hx Coronary Artery Disease, Hx Heart Attack, Hx Hypercholesterolemia, Hx Hypertension Denies: Hx DVT, Hx Pulmonary Embolism, Hx Heart Murmur Pulmonary Medical History: Reports: Hx Bronchitis, Hx COPD, Hx Pneumonia Denies: Hx Asthma, Hx Respiratory Failure, Hx Sleep Apnea, Hx Tuberculosis Neurological Medical History: Reports: None. Denies: Hx Cerebrovascular Accident, Hx Seizures Endocrine Medical History: Denies: Hx Diabetes Mellitus Type 1, Hx Diabetes Mellitus Type 2, Hx Hyperthyroidism, Hx Hypothyroidism Renal/ Medical History: Reports: None, Hx Kidney Stones. 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 GI Medical History: Denies: Hx Cirrhosis, Hx Crohn's Disease, Hx Gastroesophageal Reflux Disease, Hx Hepatitis, Hx Hiatal Hernia, Hx Irritable Bowel, Hx Liver Failure, Hx Ulcer Musculoskeltal Medical History: Denies Hx Arthritis, Denies Hx Multiple Sclerosis, Reports Other - Bone pain Skin Medical History: Reports None Psychiatric Medical History: Reports: None Denies: Hx Dementia, Hx Depression Infectious Medical History: Reports: Hx MRSA - History of MRSA pneumonia. 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 Denies: Hx Appendectomy, Hx Bowel Surgery, Hx Colostomy, Hx Gastric Bypass Surgery, Hx Tonsillectomy - Immunizations Immunizations up to date: Yes Review of systems Constitutional: Weakness Cardiovascular: No symptoms reported Respiratory: Short of breath Gastrointestinal: Poor appetite Geniturinary: No symptoms reported Musculoskeltal: Back pain, Joint pain, Muscle pain Hematologic/Lymphatic: No symptoms reported Ojective:Exam Vital Signs: Temp Pulse Resp BP Pulse Ox 97.9 F 72 21 H 134/66 H 95 01/13/17 16:15 01/13/17 20:30 01/13/17 20:30 01/13/17 16:15 01/13/17 20:30 Intake & Output 01/12/17 01/13/17 01/14/17 06:59 06:59 06:59 Intake Total 0 1475 2050 Output Total 400 200 Balance 0 1075 1850 Weight 103.4 kg 103.4 kg - General General Appearance: Appears well, Alert - HEENT Head: Normocephalic Eyes: Normal Pupils: PERRLA - Neck Neck: Supple - Respiratory Breath sounds: Rhonchi - Abdominal Inspection: Normal, Healed incision Distension: No distension Tenderness: Nontender - Neurological Cognition: Normal Orientation: Alert Speech: Normal Cranial nerves: Normal Objective-Diagnostic Laboratory: 01/12/17 04:15 01/12/17 04:15 01/12/17 01:00 Nasophary (Mrsa Only) MRSA Surveillance Culture - Final NO MRSA RECOVERED 01/11/17 01/11/17 01/12/17 22:11 22:11 04:15 Creatine Kinase 311 H Troponin I 0.053 0.052 01/12/17 01/12/17 01/12/17 04:15 12:36 12:36 Creatine Kinase 263 H 243 H Troponin I 0.046 01/12/17 01/12/17 18:45 18:45 Creatine Kinase 239 H Troponin I 0.052 Plan and Recommendation Plan and Recommendation: Discussed options ofr care post discharge, Long discusssion of home care with hospice vs SNF. Family cannot take care of patient, advised to utilize SNF and to apply for Medicaid early. Discussed agency problems when hired for home care. Support offered to son who is anxious and grieving. Patient denies pain but family reports his complaints of pain when no staff in room. Dr. Keating discussed Tramadol with family ssince this is what patint was taking at home. Discussed scheduling Tramadol and possibly other meds avaialable if needed. Dr. Keating discussed condition and care needs with son and sister while I was presnt and covered all aspects of care and illness in addition to supporting family. DNR is already in place. No other care needs at this time, awaiting placement to SNF.. I gave son and sister my cell phone number if needed. Will follow f support. Total time with patient, son, sister and friends....along with Rishabh Calle who spoke with son and sister at length. Appreciate opportunity to participate in care. - Time Spent with Patient Time spent with patient: 30 to 40 Minutes
[2017-01-14] MEDS: DEXAMETHASONE SOD PHOSPHATE INJ 4 MG/1 ML VIAL IV SCH ×4 (00:57→17:08)
[2017-01-14] MEDS: PIPERACILLIN SODIUM/TAZOBACTAM 4.5 GM in DEXTROSE 5%-WATER 100 ML IV SCH ×4 (00:57→17:09)
[2017-01-14] MEDS: LEVOTHYROXINE SODIUM 0.075 MG TABLET PO SCH (05:54)
[2017-01-14] MEDS: LANSOPRAZOLE 15 MG TAB.RAP.DR PO SCH (05:54)
[2017-01-14] MEDS: IPRATROPIUM/ALBUTEROL 0.5-2.5 MG/3 ML AMPUL NEB SCH ×3 (08:25→20:39)
[2017-01-14] MEDS: TRAMADOL HCL 50 MG TABLET PO SCH ×2 (09:35→17:09)
[2017-01-14] MEDS: DOCUSATE SODIUM 100 MG CAPSULE PO SCH ×2 (09:35→17:08)
[2017-01-14] MEDS: METOPROLOL SUCCINATE 50 MG TAB.SR.24H PO SCH ×2 (09:35→21:15)
[2017-01-14] MEDS: NYSTATIN/DEXAMETH/DIPHEN SUSP 120 ML PO SCH ×4 (09:35→21:16)
[2017-01-14] MEDS: NORMAL SALINE 1000 ML 1,000 ML IV PRN (14:33)
--- NOTE | 2017-01-14 18:15 | PDOC PROGRESS REPORT ---
Subjective Progress Note for:: 01/14/17 Subjective:: Patient reports that he is feeling much better. He reports his bone pain is improved and feels as though his breathing is much improved. Patient admits to constipation. Patient denies chest pain, abdominal pain, nausea, vomiting, fevers, chills, diarrhea, headache, new onset weakness. Physical Exam Vital Signs: Temp Pulse Resp BP Pulse Ox 97.3 F 70 18 132/80 H 97 01/14/17 16:05 01/14/17 16:05 01/14/17 16:05 01/14/17 16:05 01/14/17 17:25 Intake & Output 01/13/17 01/14/17 01/15/17 06:59 06:59 06:59 Intake Total 1475 2470 690 Output Total 400 200 300 Balance 1075 2270 390 Weight 103.4 kg 103.5 kg Exam: General: awake alert and oriented x2, mildly tachypneic HEENT: AT/NC, PERRL, EOMI, oropharynx is moist, mucosa pink, no scleral icterus , no conjunctival injection Neck: No JVD, trachea midline, thyromegaly Chest: Mild tachypneic, scattered occasional rhonchi CV: IRR, no rub, or gallop; +2/6 SM apex Abdomen: Soft, nontender to palpation, distended, active bowel sounds; no rebound, rigidity, or guarding Extremities: No cyanosis, clubbing or edema Neuro: Cranial nerves II through XII are grossly intact without focal deficits; awake alert and oriented x2 Psych: Normal mood and affect Results Laboratory Results: 01/12/17 04:15 01/12/17 04:15 01/12/17 17:43 Clean Catch Midstream Urine Culture - Final 6,000 col/ml 01/11/17 01/11/17 01/12/17 22:11 22:11 04:15 Creatine Kinase 311 H Troponin I 0.053 0.052 01/12/17 01/12/17 01/12/17 04:15 12:36 12:36 Creatine Kinase 263 H 243 H Troponin I 0.046 01/12/17 01/12/17 18:45 18:45 Creatine Kinase 239 H Troponin I 0.052 Impressions: Head CT 01/11/17 17:26 IMPRESSION: CHRONIC CHANGES OF ATROPHY AND MICROVASCULAR ISCHEMIA. NO ACUTE PROCESS. Acute Abdomen Series 01/11/17 17:30 IMPRESSION: Nonspecific abdomen. Densely sclerotic bone lesions that appear stable. Chest X-Ray 01/12/17 00:00 IMPRESSION: Basilar atelectasis. No focal consolidation. Findings are accentuated by low lung volumes. Renal Ultrasound 01/12/17 00:00 IMPRESSION: NORMAL RENAL AND BLADDER ULTRASOUND. Assessment & Plan - Diagnosis (1) Pneumonia Qualifiers: Laterality: unspecified laterality Lung location: unspecified part of lung Is this a current diagnosis for this admission?: Yes Plan: Patient has a long history of COPD and prior pseudomonal pneumonias. Patient is far from baseline respiratory moseley. Scheduled nebulized treatments. Patient continues to require inpatient status for IV antibiotics and nebulized treatments. Patient is currently pending the results of his sputum culture. Other organism is GNR 01/13/17 12:55 Gram Stain - Preliminary Sputum Sputum Culture - Preliminary . C.albicans/C.dubliniensis (2) Prostate cancer metastatic to multiple sites Is this a current diagnosis for this admission?: Yes Plan: Patient is now a DNR. Patient is no longer on chemotherapy. Patient is also no longer receiving radiation therapy. Patient has had broad spread of his prostate CA. At this time, they are not amenable to the idea of hospice. Doing well with IV Decadron and tramadol for his bone pain. Patient has had prior difficulties with narcotic pain medication causing encephalopathy. (3) Hypothyroid Qualifiers: Hypothyroidism type: unspecified Qualified Code(s): E03.9 - Hypothyroidism , unspecified Is this a current diagnosis for this admission?: Yes Plan: Place patient on Synthroid 75 mcg p.o. daily. Will monitor patient on telemetry for his history of atrial fibrillation. Feel that this contributing significantly to his acute encephalopathy. Repeat free T4 03/14/14 01/12/17 17:06 04:15 TSH 4.77 H 31.70 H Free T4 0.28 L (4) ARF (acute renal failure) Qualifiers: Acute renal failure type: unspecified Qualified Code(s): N17.9 - Acute kidney failure, unspecified Is this a current diagnosis for this admission?: Yes Plan: Secondary to dehydration. Improved with gentle hydration. Stop IV fluids (5) Dehydration Is this a current diagnosis for this admission?: Yes (6) Elevated LFTs Is this a current diagnosis for this admission?: Yes (7) Encephalopathy acute Is this a current diagnosis for this admission?: Yes (8) Chronic kidney disease, stage III (moderate) Is this a current diagnosis for this admission?: Yes (9) Anticoagulated on Coumadin Is this a current diagnosis for this admission?: Yes Plan: Check PT/INR (10) Atrial fibrillation Qualifiers: Atrial fibrillation type: chronic Qualified Code(s): I48.2 - Chronic atrial fibrillation Is this a current diagnosis for this admission?: Yes (11) COPD (chronic obstructive pulmonary disease) Qualifiers: COPD type: unspecified COPD Qualified Code(s): J44.9 - Chronic obstructive pulmonary disease, unspecified Is this a current diagnosis for this admission?: Yes Plan: Have placed patient on Decadron and scheduled nebulized treatments (12) DVT prophylaxis Is this a current diagnosis for this admission?: Yes (13) Thrombocytopenia Is this a current diagnosis for this admission?: Yes Plan: Likely secondary to sepsis, but will hold heparin or Lovenox (14) Constipation Is this a current diagnosis for this admission?: Yes Plan: Add senna to Colace - Time Time Spent with patient: 25-34 minutes Medications reviewed and adjusted accordingly: Yes Anticipated discharge: Acute Rehab
[2017-01-14] MEDS ORDERED: SENNOSIDES/DOCUSATE 8.6-50 MG 1 EACH TABLET PO ONE (18:45)
[2017-01-14 21:12] LABS: HEMATOCRIT 27.7 % (37.9-51.0); HEMOGLOBIN 9.6 g/dL (13.5-17.0); HGB HCT DIFFERENCE 1.1; MEAN CORPUSCULAR HEMOGLOBIN 31.3 pg (27.0-33.4); MEAN CORPUSCULAR HGB CONC 34.6 g/dL (32.0-36.0); MEAN CORPUSCULAR VOLUME 91 fl (80-97); RED BLOOD COUNT 3.05 10^6/uL (4.35-5.55); RED CELL DISTRIBUTION WIDTH 21.1 % (11.5-14.0)
[2017-01-14] MEDS: ATORVASTATIN CALCIUM 40 MG TABLET PO SCH (21:15)
[2017-01-14] MEDS: WARFARIN SODIUM 5 MG TABLET PO SCH (21:15)
[2017-01-14 21:23] LABS: ANION GAP 12 (5-19); BLOOD UREA NITROGEN 19 mg/dL (7-20); CALCIUM 8.4 mg/dL (8.4-10.2); CARBON DIOXIDE 21 mmol/L (22-30); CHLORIDE 100 mmol/L (98-107); CREATININE RESULT 1.12 mg/dL (0.52-1.25); GLUCOSE 172 mg/dL (75-110); POTASSIUM 3.5 mmol/L (3.6-5.0); SODIUM 133.1 mmol/L (137-145)
[2017-01-14 21:52] LABS: BASOPHILS % (MANUAL) 0 % (0-2); EOSINOPHILS % (MANUAL) 0 % (0-6); LYMPHOCYTES % (MANUAL) 3 % (13-45); TOTAL CELLS COUNTED 100
[2017-01-14 21:58] LABS: TOXIC GRANULATION 1+
[2017-01-14 21:59] LABS: ACANTHOCYTES SLIGHT; ANISOCYTOSIS 3+; OVALOCYTES SLIGHT; PLATELET CLUMPS PRESENT; POIKILOCYTOSIS SLIGHT; POLYCHROMASIA 1+; TOXIC VACUOLATION PRESENT
[2017-01-15] MEDS: PIPERACILLIN SODIUM/TAZOBACTAM 4.5 GM in DEXTROSE 5%-WATER 100 ML IV SCH ×3 (00:49→23:29)
[2017-01-15] MEDS: DEXAMETHASONE SOD PHOSPHATE INJ 4 MG/1 ML VIAL IV SCH ×5 (00:49→23:29)
[2017-01-15] MEDS: LANSOPRAZOLE 15 MG TAB.RAP.DR PO SCH (05:35)
[2017-01-15] MEDS: LEVOTHYROXINE SODIUM 0.075 MG TABLET PO SCH (05:35)
[2017-01-15] MEDS: ONDANSETRON 4 MG TAB.RAPDIS PO PRN (05:36)
[2017-01-15 06:19] LABS: PROTHROMBIN TIME 29.5 SEC (11.4-15.4)
[2017-01-15 06:24] LABS: HEMATOCRIT 28.9 % (37.9-51.0); HEMOGLOBIN 9.8 g/dL (13.5-17.0); HGB HCT DIFFERENCE 0.5; MEAN CORPUSCULAR HEMOGLOBIN 30.9 pg (27.0-33.4); MEAN CORPUSCULAR VOLUME 91 fl (80-97); RED BLOOD COUNT 3.18 10^6/uL (4.35-5.55); WHITE BLOOD COUNT 13.9 10^3/uL (4.0-10.5)
[2017-01-15 06:28] LABS: ANION GAP 15 (5-19); BLOOD UREA NITROGEN 18 mg/dL (7-20); CALCIUM 8.5 mg/dL (8.4-10.2); CARBON DIOXIDE 22 mmol/L (22-30); CHLORIDE 99 mmol/L (98-107); CREATININE RESULT 1.12 mg/dL (0.52-1.25); GLUCOSE 144 mg/dL (75-110); MAGNESIUM 1.9 mg/dL (1.6-2.3); PHOSPHORUS 2.4 mg/dL (2.5-4.5); POTASSIUM 3.6 mmol/L (3.6-5.0); SODIUM 135.6 mmol/L (137-145)
[2017-01-15 06:56] LABS: BAND NEUTROPHILS % (MANUAL) 2 % (3-5); BASOPHILS % (MANUAL) 0 % (0-2); EOSINOPHILS % (MANUAL) 0 % (0-6); LYMPHOCYTES % (MANUAL) 7 % (13-45); NUCLEATED RED BLOOD CELLS 3 /100 WBC (0); TOTAL CELLS COUNTED 100
[2017-01-15 07:02] LABS: ANISOCYTOSIS 2+; OVALOCYTES 1+; TOXIC GRANULATION SLIGHT; TOXIC VACUOLATION PRESENT
[2017-01-15 07:03] LABS: POIKILOCYTOSIS 1+
[2017-01-15] MEDS: IPRATROPIUM/ALBUTEROL 0.5-2.5 MG/3 ML AMPUL NEB SCH ×3 (07:55→20:32)
[2017-01-15] MEDS: DOCUSATE SODIUM 100 MG CAPSULE PO SCH ×2 (09:10→17:22)
[2017-01-15] MEDS: TRAMADOL HCL 50 MG TABLET PO SCH ×2 (09:10→17:22)
[2017-01-15] MEDS: NYSTATIN/DEXAMETH/DIPHEN SUSP 120 ML PO SCH ×4 (09:10→21:18)
[2017-01-15] MEDS: METOPROLOL SUCCINATE 50 MG TAB.SR.24H PO SCH ×2 (09:10→21:18)
[2017-01-15 09:49] LABS: PATH REVIEW PATHOLOGIST REVIEWED
--- NOTE | 2017-01-15 17:42 | PDOC PROGRESS REPORT ---
Subjective Progress Note for:: 01/15/17 Subjective:: Pt seen earlier today on morning rounds. Patient reports that he is feeling much better. He reports his bone pain is improved and feels as though his breathing is much improved. Patient admits to constipation despite additional medication. Patient denies chest pain, abdominal pain, nausea, vomiting, fevers, chills, diarrhea, headache, new onset weakness. Physical Exam Vital Signs: Temp Pulse Resp BP Pulse Ox 97.5 F 67 18 131/75 H 95 01/15/17 15:47 01/15/17 15:47 01/15/17 15:47 01/15/17 15:47 01/15/17 15:47 Intake & Output 01/14/17 01/15/17 01/16/17 06:59 06:59 06:59 Intake Total 2470 1430 120 Output Total 200 945 300 Balance 2270 485 -180 Weight 103.5 kg 103.6 kg Exam: General: awake alert and oriented x2 (not year), NAD HEENT: AT/NC, PERRL, EOMI, oropharynx is moist, mucosa pink, no scleral icterus , no conjunctival injection Neck: No JVD, trachea midline, thyromegaly Chest: bibasilar craclkes CV: IRR, no rub, or gallop; +2/6 SM apex Abdomen: Soft, nontender to palpation, distended, tympanic, active bowel sounds ; no rebound, rigidity, or guarding Extremities: No cyanosis, clubbing, trace edema Neuro: Cranial nerves II through XII are grossly intact without focal deficits; awake alert and oriented x2 (not year) Psych: Normal mood and affect Results Laboratory Results: 01/15/17 05:45 01/15/17 05:45 01/14/17 01/14/17 01/14/17 20:30 20:30 20:30 WBC 12.0 H RBC 3.05 L Hgb 9.6 L Hct 27.7 L MCV 91 MCH 31.3 MCHC 34.6 RDW 21.1 H Plt Count 112 L Seg Neutrophils % Not Reportable Lymphocytes % Not Reportable Monocytes % Not Reportable Eosinophils % Not Reportable Basophils % Not Reportable Absolute Neutrophils Not Reportable Absolute Lymphocytes Not Reportable Absolute Monocytes Not Reportable Absolute Eosinophils Not Reportable Absolute Basophils Not Reportable Sodium 133.1 L Potassium 3.5 L Chloride 100 Carbon Dioxide 21 L Anion Gap 12 BUN 19 Creatinine 1.12 Est GFR ( Amer) > 60 Est GFR (Non-Af Amer) > 60 Glucose 172 H Calcium 8.4 Phosphorus Magnesium Free T4 0.35 L 01/15/17 01/15/17 05:45 05:45 WBC 13.9 H RBC 3.18 L Hgb 9.8 L Hct 28.9 L MCV 91 MCH 30.9 MCHC 34.0 RDW 21.0 H Plt Count 119 L Seg Neutrophils % Not Reportable Lymphocytes % Not Reportable Monocytes % Not Reportable Eosinophils % Not Reportable Basophils % Not Reportable Absolute Neutrophils Not Reportable Absolute Lymphocytes Not Reportable Absolute Monocytes Not Reportable Absolute Eosinophils Not Reportable Absolute Basophils Not Reportable Sodium 135.6 L Potassium 3.6 Chloride 99 Carbon Dioxide 22 Anion Gap 15 BUN 18 Creatinine 1.12 Est GFR ( Amer) > 60 Est GFR (Non-Af Amer) > 60 Glucose 144 H Calcium 8.5 Phosphorus 2.4 L Magnesium 1.9 Free T4 01/11/17 01/11/17 01/12/17 22:11 22:11 04:15 Creatine Kinase 311 H Troponin I 0.053 0.052 01/12/17 01/12/17 01/12/17 04:15 12:36 12:36 Creatine Kinase 263 H 243 H Troponin I 0.046 01/12/17 01/12/17 18:45 18:45 Creatine Kinase 239 H Troponin I 0.052 Impressions: Head CT 01/11/17 17:26 IMPRESSION: CHRONIC CHANGES OF ATROPHY AND MICROVASCULAR ISCHEMIA. NO ACUTE PROCESS. Acute Abdomen Series 01/11/17 17:30 IMPRESSION: Nonspecific abdomen. Densely sclerotic bone lesions that appear stable. Chest X-Ray 01/12/17 00:00 IMPRESSION: Basilar atelectasis. No focal consolidation. Findings are accentuated by low lung volumes. Renal Ultrasound 01/12/17 00:00 IMPRESSION: NORMAL RENAL AND BLADDER ULTRASOUND. Assessment & Plan - Diagnosis (1) Pneumonia Qualifiers: Laterality: unspecified laterality Lung location: unspecified part of lung Is this a current diagnosis for this admission?: Yes Plan: Patient has a long history of COPD and prior pseudomonal pneumonias. Patient improved and will continue Scheduled nebulized treatments. Patient continues to require inpatient status for IV antibiotics and nebulized treatments, pending the results of his sputum culture. 01/13/17 12:55 Gram Stain - Preliminary Sputum Sputum Culture - Preliminary Gram Negative Rods . C.albicans/C.dubliniensis Normal Sheryl (2) Prostate cancer metastatic to multiple sites Is this a current diagnosis for this admission?: Yes Plan: Patient is now a DNR. Patient is no longer on chemotherapy. Patient is also no longer receiving radiation therapy. Patient has had broad spread of his prostate CA. At this time, they are not amenable to the idea of hospice. Doing well with IV Decadron and tramadol for his bone pain. Appreciate palliative care consult (3) Hypothyroid Qualifiers: Hypothyroidism type: unspecified Qualified Code(s): E03.9 - Hypothyroidism , unspecified Is this a current diagnosis for this admission?: Yes Plan: Increase Synthroid 100 mcg p.o. daily. Add cytomel. Will monitor patient on telemetry for his history of atrial fibrillation. Feel that this contributing significantly to his acute encephalopathy. Repeat free T4 and free T3 tomorrow. 03/14/14 01/12/17 17:06 04:15 TSH 4.77 H 31.70 H Free T4 0.28 L 01/14/17 20:30 Free T4 0.35 L (4) ARF (acute renal failure) Qualifiers: Acute renal failure type: unspecified Qualified Code(s): N17.9 - Acute kidney failure, unspecified Is this a current diagnosis for this admission?: Yes Plan: Secondary to dehydration. Improved with gentle hydration. 01/15/17 05:45 Creatinine 1.12 (5) Dehydration Is this a current diagnosis for this admission?: Yes (6) Elevated LFTs Is this a current diagnosis for this admission?: Yes (7) Encephalopathy acute Is this a current diagnosis for this admission?: Yes (8) Chronic kidney disease, stage III (moderate) Is this a current diagnosis for this admission?: Yes (9) Anticoagulated on Coumadin Is this a current diagnosis for this admission?: Yes (10) Atrial fibrillation Qualifiers: Atrial fibrillation type: chronic Qualified Code(s): I48.2 - Chronic atrial fibrillation Is this a current diagnosis for this admission?: Yes (11) COPD (chronic obstructive pulmonary disease) Qualifiers: COPD type: unspecified COPD Qualified Code(s): J44.9 - Chronic obstructive pulmonary disease, unspecified Is this a current diagnosis for this admission?: Yes (12) DVT prophylaxis Is this a current diagnosis for this admission?: Yes (13) Thrombocytopenia Is this a current diagnosis for this admission?: Yes (14) Constipation Is this a current diagnosis for this admission?: Yes Plan: Continue senna and Colace. If no relief will give Dulcolax. - Time Time Spent with patient: 25-34 minutes Medications reviewed and adjusted accordingly: Yes Anticipated discharge: Acute Rehab
[2017-01-15] MEDS ORDERED: LIOTHYRONINE SODIUM 25 MCG TABLET PO ONE (18:00)
[2017-01-15] MEDS ORDERED: PIPERACILLIN SODIUM/TAZOBACTAM 4.5 GM in NORMAL SALINE 100 ML IV ONE (18:00)
[2017-01-15] MEDS ORDERED: LIOTHYRONINE SODIUM 5 MCG TABLET PO ONE (18:00)
[2017-01-15] MEDS: ATORVASTATIN CALCIUM 40 MG TABLET PO SCH (21:18)
[2017-01-15] MEDS: WARFARIN SODIUM 5 MG TABLET PO SCH (21:18)
[2017-01-15] MEDS: SENNOSIDES/DOCUSATE 8.6-50 MG 1 EACH TABLET PO SCH (21:18)
[2017-01-15] MEDS: TRAMADOL HCL 50 MG TABLET PO PRN (23:27)
[2017-01-16] MEDS: LANSOPRAZOLE 15 MG TAB.RAP.DR PO SCH (05:47)
[2017-01-16] MEDS: DEXAMETHASONE SOD PHOSPHATE INJ 4 MG/1 ML VIAL IV SCH ×3 (05:48→18:12)
[2017-01-16] MEDS: PIPERACILLIN SODIUM/TAZOBACTAM 4.5 GM in DEXTROSE 5%-WATER 100 ML IV SCH ×3 (05:48→18:14)
[2017-01-16] MEDS: LEVOTHYROXINE SODIUM 0.1 MG TABLET PO SCH (05:48)
[2017-01-16] MEDS: ONDANSETRON 4 MG TAB.RAPDIS PO PRN ×2 (05:51→15:34)
[2017-01-16] MEDS ORDERED: LIOTHYRONINE SODIUM 25 MCG TABLET PO SCH ×2 (06:00→18:00)
[2017-01-16] MEDS ORDERED: LIOTHYRONINE SODIUM 5 MCG TABLET PO SCH (06:00)
[2017-01-16 06:02] LABS: PROTHROMBIN TIME 29.3 SEC (11.4-15.4)
[2017-01-16 06:15] LABS: HEMATOCRIT 29.4 % (37.9-51.0); HGB HCT DIFFERENCE 0.6; MEAN CORPUSCULAR HEMOGLOBIN 31.2 pg (27.0-33.4); MEAN CORPUSCULAR VOLUME 92 fl (80-97); RED CELL DISTRIBUTION WIDTH 21.2 % (11.5-14.0); WHITE BLOOD COUNT 15.1 10^3/uL (4.0-10.5)
[2017-01-16 06:20] LABS: ANION GAP 13 (5-19); BLOOD UREA NITROGEN 21 mg/dL (7-20); CALCIUM 8.6 mg/dL (8.4-10.2); CARBON DIOXIDE 23 mmol/L (22-30); CHLORIDE 100 mmol/L (98-107); CREATININE RESULT 1.15 mg/dL (0.52-1.25); GLUCOSE 142 mg/dL (75-110); POTASSIUM 3.7 mmol/L (3.6-5.0)
[2017-01-16 06:51] LABS: BAND NEUTROPHILS % (MANUAL) 2 % (3-5); BASOPHILS % (MANUAL) 0 % (0-2); EOSINOPHILS % (MANUAL) 0 % (0-6); LYMPHOCYTES % (MANUAL) 4 % (13-45); TOTAL CELLS COUNTED 100
[2017-01-16 06:53] LABS: NUCLEATED RED BLOOD CELLS 1 /100 WBC (0)
[2017-01-16 06:54] LABS: ANISOCYTOSIS 3+; OVALOCYTES 1+; POIKILOCYTOSIS 1+; POLYCHROMASIA SLIGHT; TEAR DROP CELLS SLIGHT
[2017-01-16] MEDS: IPRATROPIUM/ALBUTEROL 0.5-2.5 MG/3 ML AMPUL NEB SCH ×3 (08:20→19:46)
[2017-01-16] MEDS: METOPROLOL SUCCINATE 50 MG TAB.SR.24H PO SCH ×2 (11:04→22:19)
[2017-01-16] MEDS: DOCUSATE SODIUM 100 MG CAPSULE PO SCH ×2 (11:06→18:15)
[2017-01-16] MEDS: NYSTATIN/DEXAMETH/DIPHEN SUSP 120 ML PO SCH ×2 (11:07→13:57)
[2017-01-16] MEDS: TRAMADOL HCL 50 MG TABLET PO SCH ×2 (11:24→18:53)
[2017-01-16] MEDS ORDERED: PHOSPHORUS #1 250 MG TABLET PO ONE (13:30)
--- NOTE | 2017-01-16 16:23 | PDOC PROGRESS REPORT ---
Subjective Progress Note for:: 01/16/17 Subjective:: He asks me to pray for him. Patient reports he had a large bowel movement yesterday. Patient denies chest pain, shortness of breath, abdominal pain, nausea, vomiting , fevers, chills, diarrhea, constipation, headache, new onset weakness. Physical Exam Vital Signs: Temp Pulse Resp BP Pulse Ox 97.6 F 70 18 156/89 H 97 01/16/17 03:33 01/16/17 03:33 01/16/17 03:33 01/16/17 03:33 01/16/17 03:33 Intake & Output 01/15/17 01/16/17 01/17/17 06:59 06:59 06:59 Intake Total 1430 920 Output Total 945 500 Balance 485 420 Weight 103.6 kg 104.7 kg Exam: General: awake alert and oriented x2 (not year), NAD HEENT: AT/NC, PERRL, EOMI, oropharynx is moist, mucosa pink, no scleral icterus , no conjunctival injection Neck: No JVD, trachea midline, thyromegaly Chest: bibasilar crackles CV: IRR, no rub, or gallop; +2/6 SM apex Abdomen: Soft, nontender to palpation, distended, tympanic, active bowel sounds ; no rebound, rigidity, or guarding Extremities: No cyanosis, clubbing, trace edema Neuro: Cranial nerves II through XII are grossly intact without focal deficits; awake alert and oriented x2 (not year) Psych: Normal mood and affect Results Laboratory Results: 01/16/17 05:20 01/16/17 05:20 01/16/17 01/16/17 05:20 05:20 WBC 15.1 H RBC 3.20 L Hgb 10.0 L Hct 29.4 L MCV 92 MCH 31.2 MCHC 34.0 RDW 21.2 H Plt Count 129 L Seg Neutrophils % Not Reportable Lymphocytes % Not Reportable Monocytes % Not Reportable Eosinophils % Not Reportable Basophils % Not Reportable Absolute Neutrophils Not Reportable Absolute Lymphocytes Not Reportable Absolute Monocytes Not Reportable Absolute Eosinophils Not Reportable Absolute Basophils Not Reportable Sodium 136.0 L Potassium 3.7 Chloride 100 Carbon Dioxide 23 Anion Gap 13 BUN 21 H Creatinine 1.15 Est GFR ( Amer) > 60 Est GFR (Non-Af Amer) > 60 Glucose 142 H Calcium 8.6 01/11/17 01/11/17 01/12/17 22:11 22:11 04:15 Creatine Kinase 311 H Troponin I 0.053 0.052 01/12/17 01/12/17 01/12/17 04:15 12:36 12:36 Creatine Kinase 263 H 243 H Troponin I 0.046 01/12/17 01/12/17 18:45 18:45 Creatine Kinase 239 H Troponin I 0.052 Impressions: Head CT 01/11/17 17:26 IMPRESSION: CHRONIC CHANGES OF ATROPHY AND MICROVASCULAR ISCHEMIA. NO ACUTE PROCESS. Acute Abdomen Series 01/11/17 17:30 IMPRESSION: Nonspecific abdomen. Densely sclerotic bone lesions that appear stable. Chest X-Ray 01/12/17 00:00 IMPRESSION: Basilar atelectasis. No focal consolidation. Findings are accentuated by low lung volumes. Renal Ultrasound 01/12/17 00:00 IMPRESSION: NORMAL RENAL AND BLADDER ULTRASOUND. Assessment & Plan - Diagnosis (1) Pneumonia Qualifiers: Laterality: unspecified laterality Lung location: unspecified part of lung Is this a current diagnosis for this admission?: Yes Plan: Patient has a long history of COPD and prior pseudomonal pneumonias. Patient improved and will continue Scheduled nebulized treatments. Patient continues to require inpatient status for IV antibiotics and nebulized treatments, pending the results of his sputum culture. 01/13/17 12:55 Gram Stain - Preliminary Sputum Sputum Culture - Preliminary Gram Negative Rods . C.albicans/C.dubliniensis Normal Sheryl (2) Prostate cancer metastatic to multiple sites Is this a current diagnosis for this admission?: Yes Plan: Patient is now a DNR. Patient is no longer on chemotherapy. Patient is also no longer receiving radiation therapy. Patient has had broad spread of his prostate CA. At this time, they are more amenable to the idea of hospice and at this time would like me to remove any unnecessary medications while they discuss hospice versus comfort care versus rehab. Doing well with IV Decadron and tramadol for his bone pain. Appreciate palliative care consult (3) Hypothyroid Qualifiers: Hypothyroidism type: unspecified Qualified Code(s): E03.9 - Hypothyroidism , unspecified Is this a current diagnosis for this admission?: Yes Plan: Increase Synthroid 100 mcg p.o. daily. Will monitor patient on telemetry for his history of atrial fibrillation. Feel that this contributing significantly to his acute encephalopathy. Slowly improving and will increase Cytomel. 03/14/14 01/12/17 17:06 04:15 TSH 4.77 H 31.70 H Free T4 0.28 L 01/14/17 20:30 Free T4 0.35 L 01/16/17 05:20 Free T3 pg/mL 1.95 L (4) ARF (acute renal failure) Qualifiers: Acute renal failure type: unspecified Qualified Code(s): N17.9 - Acute kidney failure, unspecified Is this a current diagnosis for this admission?: Yes Plan: Secondary to dehydration. Improved with gentle hydration. (5) Dehydration Is this a current diagnosis for this admission?: Yes (6) Elevated LFTs Is this a current diagnosis for this admission?: Yes (7) Encephalopathy acute Is this a current diagnosis for this admission?: Yes (8) Chronic kidney disease, stage III (moderate) Is this a current diagnosis for this admission?: Yes (9) Anticoagulated on Coumadin Is this a current diagnosis for this admission?: Yes Plan: At this time family has requested that I stop Coumadin. I am in agreement with this plan. 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 Family is currently amenable to stopping Coumadin. (11) COPD (chronic obstructive pulmonary disease) Qualifiers: COPD type: unspecified COPD Qualified Code(s): J44.9 - Chronic obstructive pulmonary disease, unspecified Is this a current diagnosis for this admission?: Yes (12) DVT prophylaxis Is this a current diagnosis for this admission?: Yes (13) Thrombocytopenia Is this a current diagnosis for this admission?: Yes (14) Constipation Is this a current diagnosis for this admission?: Yes - Time Time Spent with patient: 35 or more minutes Medications reviewed and adjusted accordingly: Yes Anticipated discharge: Acute Rehab, Hospice
[2017-01-16] MEDS: PHOSPHORUS #1 250 MG TABLET PO SCH ×2 (18:26→22:19)
--- NOTE | 2017-01-16 18:46 | Progress Note ---
Provider Note Provider Note: Spent in excess of two hours with patient family discussing care, prognosis, plan of care, and discharge
[2017-01-16] MEDS ORDERED: PHARMACY COMMUNICATION ORDER MC NR (19:00)
[2017-01-16] MEDS ORDERED: LIOTHYRONINE SODIUM 5 MCG TABLET PO ONE (19:45)
[2017-01-16] MEDS: SENNOSIDES/DOCUSATE 8.6-50 MG 1 EACH TABLET PO SCH (22:14)
[2017-01-17] MEDS: DEXAMETHASONE SOD PHOSPHATE INJ 4 MG/1 ML VIAL IV SCH ×4 (00:19→17:46)
[2017-01-17] MEDS: PIPERACILLIN SODIUM/TAZOBACTAM 4.5 GM in DEXTROSE 5%-WATER 100 ML IV SCH ×2 (00:19→06:13)
[2017-01-17 05:38] LABS: HEMATOCRIT 30.6 % (37.9-51.0); HEMOGLOBIN 10.6 g/dL (13.5-17.0); HGB HCT DIFFERENCE 1.2; MEAN CORPUSCULAR HEMOGLOBIN 31.5 pg (27.0-33.4); MEAN CORPUSCULAR HGB CONC 34.5 g/dL (32.0-36.0); MEAN CORPUSCULAR VOLUME 91 fl (80-97); RED BLOOD COUNT 3.35 10^6/uL (4.35-5.55); RED CELL DISTRIBUTION WIDTH 21.8 % (11.5-14.0); WHITE BLOOD COUNT 15.4 10^3/uL (4.0-10.5)
[2017-01-17 05:52] LABS: ANION GAP 16 (5-19); BLOOD UREA NITROGEN 25 mg/dL (7-20); CALCIUM 8.3 mg/dL (8.4-10.2); CARBON DIOXIDE 24 mmol/L (22-30); CHLORIDE 98 mmol/L (98-107); CREATININE RESULT 1.29 mg/dL (0.52-1.25); GLUCOSE 142 mg/dL (75-110); POTASSIUM 3.6 mmol/L (3.6-5.0); SODIUM 137.8 mmol/L (137-145)
[2017-01-17] MEDS: LANSOPRAZOLE 15 MG TAB.RAP.DR PO SCH (06:13)
[2017-01-17] MEDS: LEVOTHYROXINE SODIUM 0.1 MG TABLET PO SCH (06:13)
[2017-01-17 06:45] LABS: BASOPHILS % (MANUAL) 0 % (0-2); EOSINOPHILS % (MANUAL) 1 % (0-6); LYMPHOCYTES % (MANUAL) 13 % (13-45); NUCLEATED RED BLOOD CELLS 7 /100 WBC (0); TOTAL CELLS COUNTED 100
[2017-01-17 06:48] LABS: ANISOCYTOSIS 3+; BURR CELLS SLIGHT; OVALOCYTES SLIGHT; POIKILOCYTOSIS 1+; POLYCHROMASIA SLIGHT
[2017-01-17 06:49] LABS: SCHISTOCYTES 1+
[2017-01-17] MEDS: ONDANSETRON 4 MG TAB.RAPDIS PO PRN (08:18)
[2017-01-17] MEDS: PHOSPHORUS #1 250 MG TABLET PO SCH ×4 (08:18→21:56)
[2017-01-17] MEDS: IPRATROPIUM/ALBUTEROL 0.5-2.5 MG/3 ML AMPUL NEB SCH ×2 (08:51→13:39)
[2017-01-17] MEDS: TRAMADOL HCL 50 MG TABLET PO SCH ×2 (09:37→17:46)
[2017-01-17] MEDS: LIOTHYRONINE SODIUM 5 MCG TABLET PO SCH ×2 (09:37→17:46)
[2017-01-17] MEDS: DOCUSATE SODIUM 100 MG CAPSULE PO SCH ×2 (09:38→17:46)
[2017-01-17] MEDS: METOPROLOL SUCCINATE 50 MG TAB.SR.24H PO SCH ×2 (09:38→21:56)
[2017-01-17] MEDS: LEVOFLOXACIN 750 MG TABLET PO SCH (09:38)
[2017-01-17 11:58] LABS: FREE T3 2.66 pg/mL (2.77-5.27)
[2017-01-17] MEDS ORDERED: DEXAMETHASONE SOD PHOS INJ 10 MG/1 ML VIAL IV ONE (13:00)
[2017-01-17] MEDS ORDERED: ALBUTEROL SULFATE HFA (90 MCG/PUFF) 200 PUFF/8.5 GM MDI IH PRN (15:20)
--- NOTE | 2017-01-17 15:26 | PDOC PROGRESS REPORT ---
Subjective Progress Note for:: 01/17/17 Subjective:: Patient looks visibly uncomfortable and complains of nausea. Denies pain. Patient denies chest pain, shortness of breath, abdominal pain, nausea, vomiting , fevers, chills, diarrhea, constipation, headache, new onset weakness. Physical Exam Vital Signs: Temp Pulse Resp BP Pulse Ox 97.8 F 72 17 151/97 H 96 01/17/17 12:00 01/17/17 13:39 01/17/17 13:39 01/17/17 12:00 01/17/17 13:39 Intake & Output 01/16/17 01/17/17 01/18/17 06:59 06:59 06:59 Intake Total 920 1380 480 Output Total 500 1200 100 Balance 420 180 380 Weight 104.7 kg 108.2 kg Exam: General: awake alert and oriented x2 (not year), NAD HEENT: AT/NC, PERRL, EOMI, oropharynx is moist, mucosa pink, no scleral icterus , no conjunctival injection Neck: No JVD, trachea midline, thyromegaly Chest: CTAB CV: IRR, no rub, or gallop; +2/6 SM apex Abdomen: Soft, nontender to palpation, distended, active bowel sounds; no rebound, rigidity, or guarding Extremities: No cyanosis, clubbing, trace edema Neuro: Cranial nerves II through XII are grossly intact without focal deficits; awake alert and oriented x2 (not year) Psych: Normal mood and affect Results Laboratory Results: 01/17/17 05:20 01/17/17 05:20 01/17/17 01/17/17 01/17/17 05:20 05:20 05:20 WBC 15.4 H RBC 3.35 L Hgb 10.6 L Hct 30.6 L MCV 91 MCH 31.5 MCHC 34.5 RDW 21.8 H Plt Count 142 L Seg Neutrophils % Not Reportable Lymphocytes % Not Reportable Monocytes % Not Reportable Eosinophils % Not Reportable Basophils % Not Reportable Absolute Neutrophils Not Reportable Absolute Lymphocytes Not Reportable Absolute Monocytes Not Reportable Absolute Eosinophils Not Reportable Absolute Basophils Not Reportable Sodium 137.8 Potassium 3.6 Chloride 98 Carbon Dioxide 24 Anion Gap 16 BUN 25 H Creatinine 1.29 H Est GFR ( Amer) > 60 Est GFR (Non-Af Amer) 54 L Glucose 142 H Calcium 8.3 L Phosphorus 3.3 Free T4 Free T3 pg/mL 01/17/17 05:20 WBC RBC Hgb Hct MCV MCH MCHC RDW Plt Count Seg Neutrophils % Lymphocytes % Monocytes % Eosinophils % Basophils % Absolute Neutrophils Absolute Lymphocytes Absolute Monocytes Absolute Eosinophils Absolute Basophils Sodium Potassium Chloride Carbon Dioxide Anion Gap BUN Creatinine Est GFR ( Amer) Est GFR (Non-Af Amer) Glucose Calcium Phosphorus Free T4 0.60 L Free T3 pg/mL 2.66 L 01/13/17 12:55 Sputum Gram Stain - Final 01/13/17 12:55 Sputum Sputum Culture - Final Pseudomonas Aeruginosa C.albicans/C.dubliniensis Normal Sheryl 01/11/17 01/11/17 01/12/17 22:11 22:11 04:15 Creatine Kinase 311 H Troponin I 0.053 0.052 01/12/17 01/12/17 01/12/17 04:15 12:36 12:36 Creatine Kinase 263 H 243 H Troponin I 0.046 01/12/17 01/12/17 18:45 18:45 Creatine Kinase 239 H Troponin I 0.052 Impressions: Head CT 01/11/17 17:26 IMPRESSION: CHRONIC CHANGES OF ATROPHY AND MICROVASCULAR ISCHEMIA. NO ACUTE PROCESS. Acute Abdomen Series 01/11/17 17:30 IMPRESSION: Nonspecific abdomen. Densely sclerotic bone lesions that appear stable. Chest X-Ray 01/12/17 00:00 IMPRESSION: Basilar atelectasis. No focal consolidation. Findings are accentuated by low lung volumes. Renal Ultrasound 01/12/17 00:00 IMPRESSION: NORMAL RENAL AND BLADDER ULTRASOUND. Assessment & Plan - Diagnosis (1) Pneumonia Qualifiers: Pneumonia type: due to Pseudomonas Laterality: unspecified laterality Lung location: unspecified part of lung Qualified Code(s): J15.1 - Pneumonia due to Pseudomonas Is this a current diagnosis for this admission?: Yes Plan: Patient has a long history of COPD and prior pseudomonal pneumonias. 01/13/17 12:55 Gram Stain - Final Sputum Sputum Culture - Final Pseudomonas Aeruginosa C.albicans/C.dubliniensis Normal Sheryl (2) Prostate cancer metastatic to multiple sites Is this a current diagnosis for this admission?: Yes Plan: Patient is now a DNR. Patient is no longer on chemotherapy. Patient is also no longer receiving radiation therapy. Patient has had broad spread of his prostate CA. Doing well with IV Decadron and tramadol for his bone pain. Appreciate palliative care consult (3) Hypothyroid Qualifiers: Hypothyroidism type: unspecified Qualified Code(s): E03.9 - Hypothyroidism , unspecified Is this a current diagnosis for this admission?: Yes Plan: Synthroid 100 mcg p.o. daily and cytomel 5mcg bid. Will monitor patient on telemetry for his history of atrial fibrillation. Feel that this contributing significantly to his acute encephalopathy. Levels are slowly improving 03/14/14 01/12/17 17:06 04:15 TSH 4.77 H 31.70 H Free T4 0.28 L 01/14/17 20:30 Free T4 0.35 L 01/16/17 05:20 Free T3 pg/mL 1.95 L 01/17/17 05:20 Free T4 0.60 L Free T3 pg/mL 2.66 L (4) ARF (acute renal failure) Qualifiers: Acute renal failure type: unspecified Qualified Code(s): N17.9 - Acute kidney failure, unspecified Is this a current diagnosis for this admission?: Yes Plan: Secondary to dehydration. Improved with gentle hydration. (5) Dehydration Is this a current diagnosis for this admission?: Yes (6) Elevated LFTs Is this a current diagnosis for this admission?: Yes Plan: Secondary to underlying metastatic lesions from the prostate. (7) Encephalopathy acute Is this a current diagnosis for this admission?: Yes (8) Chronic kidney disease, stage III (moderate) Is this a current diagnosis for this admission?: Yes (9) Anticoagulated on Coumadin Is this a current diagnosis for this admission?: Yes Plan: At this time family has requested that I stop Coumadin. I am in agreement with this plan. (10) Atrial fibrillation Qualifiers: Atrial fibrillation type: chronic Qualified Code(s): I48.2 - Chronic atrial fibrillation Is this a current diagnosis for this admission?: Yes Plan: Continue metoprolol and stop Coumadin Family reports to me that the batteries in his pacemaker are due to be changed, but they discuss this with his electrician refinery and reportedly in light of his current status they recommend comfort/hospice. Family is currently amenable to stopping Coumadin. (11) COPD (chronic obstructive pulmonary disease) Qualifiers: COPD type: unspecified COPD Qualified Code(s): J44.9 - Chronic obstructive pulmonary disease, unspecified Is this a current diagnosis for this admission?: Yes Plan: Have placed patient on Decadron and scheduled nebulized treatments (12) DVT prophylaxis Is this a current diagnosis for this admission?: Yes (13) Thrombocytopenia Is this a current diagnosis for this admission?: Yes Plan: Likely secondary to sepsis, and improved (14) Constipation Is this a current diagnosis for this admission?: Yes - Time Time Spent with patient: 25-34 minutes Medications reviewed and adjusted accordingly: Yes Anticipated discharge: Acute Rehab Within: within 48 hours
[2017-01-17] MEDS ORDERED: BISACODYL 10 MG SUPP.RECT PR ONE (16:00)
[2017-01-17] MEDS: SENNOSIDES/DOCUSATE 8.6-50 MG 1 EACH TABLET PO SCH (21:52)
[2017-01-18] MEDS: DEXAMETHASONE SOD PHOSPHATE INJ 4 MG/1 ML VIAL IV SCH ×5 (00:03→23:57)
[2017-01-18] MEDS: LEVOTHYROXINE SODIUM 0.1 MG TABLET PO SCH (05:25)
[2017-01-18] MEDS: LANSOPRAZOLE 15 MG TAB.RAP.DR PO SCH (05:25)
--- NOTE | 2017-01-18 10:07 | RADIOLOGY REPORT (SQ) ---
EXAM DESCRIPTION: KUB/ABDOMEN (SINGLE VIEW) COMPLETED DATE/TIME: 01/18/2017 8:24 am REASON FOR STUDY: no bm Z79.01 LONG-TERM (CURRENT) USE OF ANTICOAGULANTS COMPARISON: 01/11/2017 NUMBER OF VIEWS: One view. TECHNIQUE: Supine radiographic image of the abdomen acquired. LIMITATIONS: None. FINDINGS: BOWEL GAS PATTERN: Normal bowel gas pattern. No dilated loops. CALCIFICATIONS: No suspicious calcifications. SOFT TISSUES: No gross mass or suggestion of organomegaly. HARDWARE: There are surgical clips in the right upper quadrant consistent prior cholecystectomy. Jason gical clips overlie the pelvis. BONES: Multiple sclerotic lesions are noted consistent with metastatic disease. OTHER: No other significant finding. IMPRESSION: Gas pattern is nonspecific. There is widespread bony metastatic disease which is unchan ged. TECHNICAL DOCUMENTATION: JOB ID: [id number]- All Rights Reserved
[2017-01-18] MEDS: DOCUSATE SODIUM 100 MG CAPSULE PO SCH ×2 (10:58→18:05)
[2017-01-18] MEDS: TRAMADOL HCL 50 MG TABLET PO SCH ×2 (10:58→18:05)
[2017-01-18] MEDS: METOPROLOL SUCCINATE 50 MG TAB.SR.24H PO SCH ×2 (10:58→22:16)
[2017-01-18] MEDS: LIOTHYRONINE SODIUM 5 MCG TABLET PO SCH (10:59)
[2017-01-18] MEDS: LEVOFLOXACIN 750 MG TABLET PO SCH (10:59)
[2017-01-18] MEDS ORDERED: ACETAMINOPHEN 325 MG TABLET PO PRN (11:00)
--- NOTE | 2017-01-18 17:51 | PDOC PROGRESS REPORT ---
Subjective Progress Note for:: 01/18/17 Subjective:: Patient reports his nausea has improved from yesterday. His family reports that he has not been eating or drinking well. Patient denies chest pain, shortness of breath, abdominal pain, nausea, vomiting , fevers, chills, diarrhea, constipation, headache, new onset weakness. Physical Exam Vital Signs: Temp Pulse Resp BP Pulse Ox 97.4 F 71 21 H 154/96 H 93 01/18/17 04:09 01/18/17 14:00 01/18/17 04:09 01/18/17 04:09 01/18/17 04:09 Intake & Output 01/17/17 01/18/17 01/19/17 06:59 06:59 06:59 Intake Total 1380 720 Output Total 1200 325 Balance 180 395 Weight 108.2 kg 105.6 kg Exam: General: awake alert and oriented x2 (not year), NAD HEENT: AT/NC, PERRL, EOMI, oropharynx is moist, mucosa pink, no scleral icterus , no conjunctival injection Neck: No JVD, trachea midline, thyromegaly Chest: CTAB CV: IRR, no rub, or gallop; +2/6 SM apex Abdomen: Soft, nontender to palpation, distended, active bowel sounds; no rebound, rigidity, or guarding Extremities: No cyanosis, clubbing, trace edema Neuro: Cranial nerves II through XII are grossly intact without focal deficits; awake alert and oriented x2 (not year) Psych: Normal mood and affect Results Laboratory Results: 01/17/17 05:20 01/17/17 05:20 01/11/17 01/11/17 01/12/17 22:11 22:11 04:15 Creatine Kinase 311 H Troponin I 0.053 0.052 01/12/17 01/12/17 01/12/17 04:15 12:36 12:36 Creatine Kinase 263 H 243 H Troponin I 0.046 01/12/17 01/12/17 18:45 18:45 Creatine Kinase 239 H Troponin I 0.052 Impressions: Head CT 01/11/17 17:26 IMPRESSION: CHRONIC CHANGES OF ATROPHY AND MICROVASCULAR ISCHEMIA. NO ACUTE PROCESS. Acute Abdomen Series 01/11/17 17:30 IMPRESSION: Nonspecific abdomen. Densely sclerotic bone lesions that appear stable. Chest X-Ray 01/12/17 00:00 IMPRESSION: Basilar atelectasis. No focal consolidation. Findings are accentuated by low lung volumes. Renal Ultrasound 01/12/17 00:00 IMPRESSION: NORMAL RENAL AND BLADDER ULTRASOUND. KUB X-Ray 01/18/17 00:00 IMPRESSION: Gas pattern is nonspecific. There is widespread bony metastatic disease which is unchanged. Assessment & Plan - Diagnosis (1) Pneumonia Qualifiers: Pneumonia type: due to Pseudomonas Laterality: unspecified laterality Lung location: unspecified part of lung Qualified Code(s): J15.1 - Pneumonia due to Pseudomonas Is this a current diagnosis for this admission?: Yes Plan: Patient has a long history of COPD and prior pseudomonal pneumonias. 01/13/17 12:55 Gram Stain - Final Sputum Sputum Culture - Final Pseudomonas Aeruginosa C.albicans/C.dubliniensis Normal Sheryl We will stop antibiotic at this time. He has completed 7 days of therapy. Feel this may be making patient nauseated. (2) Prostate cancer metastatic to multiple sites Is this a current diagnosis for this admission?: Yes Plan: Patient is now a DNR. Patient is no longer on chemotherapy. Patient is also no longer receiving radiation therapy. Patient has had broad spread of his prostate CA. Doing well with IV Decadron and tramadol for his bone pain. Appreciate palliative care consult (3) Hypothyroid Qualifiers: Hypothyroidism type: unspecified Qualified Code(s): E03.9 - Hypothyroidism , unspecified Is this a current diagnosis for this admission?: Yes Plan: Synthroid 100 mcg p.o. daily and decrease Cytomel 5mcg daily. Will monitor patient on telemetry for his history of atrial fibrillation. Feel that this contributing significantly to his acute encephalopathy. Levels are slowly improving. We will check in a.m. 03/14/14 01/12/17 17:06 04:15 TSH 4.77 H 31.70 H Free T4 0.28 L 01/14/17 20:30 Free T4 0.35 L 01/16/17 05:20 Free T3 pg/mL 1.95 L 01/17/17 05:20 Free T4 0.60 L Free T3 pg/mL 2.66 L (4) ARF (acute renal failure) Qualifiers: Acute renal failure type: unspecified Qualified Code(s): N17.9 - Acute kidney failure, unspecified Is this a current diagnosis for this admission?: Yes Plan: Secondary to dehydration. Improved with gentle hydration. (5) Dehydration Is this a current diagnosis for this admission?: Yes (6) Elevated LFTs Is this a current diagnosis for this admission?: Yes (7) Encephalopathy acute Is this a current diagnosis for this admission?: Yes Plan: Multifactorial due to myxedema, sepsis, and metastatic prostate CA. (8) Chronic kidney disease, stage III (moderate) Is this a current diagnosis for this admission?: Yes (9) Anticoagulated on Coumadin Is this a current diagnosis for this admission?: Yes Plan: At this time family has requested that I stop Coumadin. I am in agreement with this plan. (10) Atrial fibrillation Qualifiers: Atrial fibrillation type: chronic Qualified Code(s): I48.2 - Chronic atrial fibrillation Is this a current diagnosis for this admission?: Yes Plan: Continue metoprolol and stop Coumadin Family reports to me that the batteries in his pacemaker are due to be changed, but they discuss this with his vice president of talent management and reportedly in light of his current status they recommend comfort/hospice. Family is currently amenable to stopping Coumadin. (11) COPD (chronic obstructive pulmonary disease) Qualifiers: COPD type: unspecified COPD Qualified Code(s): J44.9 - Chronic obstructive pulmonary disease, unspecified Is this a current diagnosis for this admission?: Yes Plan: On Decadron and scheduled nebulized treatments (12) Thrombocytopenia Is this a current diagnosis for this admission?: Yes Plan: Likely secondary to sepsis, and improved (13) Constipation Qualifiers: Constipation type: unspecified constipation type Qualified Code(s): K59.00 - Constipation, unspecified Is this a current diagnosis for this admission?: Yes Plan: Patient reports that this has improved, but none are noted by nursing. patient is distended and will obtain KUB. (14) DVT prophylaxis Is this a current diagnosis for this admission?: Yes - Time Time Spent with patient: 25-34 minutes Medications reviewed and adjusted accordingly: Yes Anticipated discharge: Acute Rehab Within: when bed available
--- NOTE | 2017-01-18 21:22 | Progress Note ---
Provider Note Provider Note: Palliative care follow up visit 01/18/17 12:25-12:50 PM Follow up visit with this very nice 82 year old gentleman who is hospitalized with AMS and pneumonia in addition to severely low thyroid levels. Mr. James has been treated for prostate cancer for a long time but it is now metastatic to most of his skeletal bones. S: Mr. James was alone at time of my visit today, saying his son and sister just left. He reports feeling better than yesterday. He denies pain or nausea. He is eating lunch but only had a few bites mashed potatoes. He says he just feels very tired. O; Patient is pale and very frail in appearance. He is cool to touch and too weak to sit up in the bed. He refused letting me help him with lunch but is very weak attempting to eat. Speech clear and appropriate. He says he is sleeping all of the time in spite of the high dose dexamethasone. Breathing is slightly labored, and a little shallow. He was dyspneic with minimal conversation. No edema of extremities, abd soft and non distended , Hand dredgemaster very weak, and voice soft. A/P: Pain: patient seems to have good control of pain, but he has been known to be stoic and not report pain accurately. ringing thyroid to normal levels has helped joint pain. Certainly steroids have helped with bone pain and most likely AMS: More alert, oriented, resigned to illness. Pneumonia: Resolving, still dyspneic. Debility R/T cancer, hypothyroidism, pneumonia, pain, etc. Will be going to SNF for rehab. Recommendations: Might consider decreasing dose dexamethasone to 4 mg daily in preparation for transfer to SNF. WIll reduce risk infections, anxiety and other side effects. 4mg daily PO should be sufficient to help with bone pain and nausea. Hope SNF allows PC follow up for patient and family support. Appreciate Dr. Keating's time and support given to patient and family. Son is struggling with patients recent decline and prognosis. Will continue to follow.
[2017-01-18] MEDS: SENNOSIDES/DOCUSATE 8.6-50 MG 1 EACH TABLET PO SCH (22:15)
[2017-01-19] MEDS: LANSOPRAZOLE 15 MG TAB.RAP.DR PO SCH (05:01)
[2017-01-19] MEDS: LEVOTHYROXINE SODIUM 0.1 MG TABLET PO SCH (05:01)
[2017-01-19] MEDS: DEXAMETHASONE SOD PHOSPHATE INJ 4 MG/1 ML VIAL IV SCH ×3 (05:01→18:15)
[2017-01-19 05:51] LABS: ANION GAP 14 (5-19); BLOOD UREA NITROGEN 29 mg/dL (7-20); CALCIUM 7.7 mg/dL (8.4-10.2); CARBON DIOXIDE 26 mmol/L (22-30); CHLORIDE 98 mmol/L (98-107); CREATININE RESULT 0.93 mg/dL (0.52-1.25); GLUCOSE 125 mg/dL (75-110); MAGNESIUM 2.1 mg/dL (1.6-2.3); POTASSIUM 3.7 mmol/L (3.6-5.0); SODIUM 138.3 mmol/L (137-145)
[2017-01-19 06:08] LABS: FREE T3 2.36 pg/mL (2.77-5.27)
[2017-01-19] MEDS: ONDANSETRON 4 MG TAB.RAPDIS PO PRN (06:18)
[2017-01-19] MEDS: DOCUSATE SODIUM 100 MG CAPSULE PO SCH ×2 (09:58→18:17)
[2017-01-19] MEDS: METOPROLOL SUCCINATE 50 MG TAB.SR.24H PO SCH ×2 (09:59→22:35)
[2017-01-19] MEDS: TRAMADOL HCL 50 MG TABLET PO SCH ×2 (09:59→18:15)
[2017-01-19] MEDS ORDERED: LIOTHYRONINE SODIUM 25 MCG TABLET PO SCH (10:00)
[2017-01-19] MEDS: LIOTHYRONINE SODIUM 5 MCG TABLET PO SCH (10:09)
[2017-01-19] MEDS: LEVOFLOXACIN 750 MG TABLET PO SCH (10:09)
--- NOTE | 2017-01-19 17:38 | PDOC PROGRESS REPORT ---
Subjective Progress Note for:: 01/19/17 Subjective:: Pt states that he is feeling better. Physical Exam Vital Signs: Temp Pulse Resp BP Pulse Ox 97.5 F 71 16 166/89 H 93 01/19/17 11:55 01/19/17 14:00 01/19/17 11:55 01/19/17 11:55 01/19/17 11:55 Intake & Output 01/18/17 01/19/17 01/20/17 06:59 06:59 06:59 Intake Total 720 640 Output Total 325 1075 Balance 395 -435 Weight 105.6 kg 105.6 kg General appearance: PRESENT: no acute distress, well-developed, well-nourished, other - laying in bed. Head exam: PRESENT: atraumatic, normocephalic Eye exam: PRESENT: conjunctiva pink, EOMI. ABSENT: scleral icterus Ear exam: PRESENT: normal external ear exam Mouth exam: PRESENT: moist, tongue midline Neck exam: ABSENT: carotid bruit, JVD, lymphadenopathy, thyromegaly Respiratory exam: PRESENT: clear to auscultation navi, other - diminished at bases. ABSENT: rales, rhonchi, wheezes Cardiovascular exam: PRESENT: RRR. ABSENT: diastolic murmur, rubs, systolic murmur Pulses: PRESENT: normal dorsalis pedis pul Vascular exam: PRESENT: normal capillary refill GI/Abdominal exam: PRESENT: normal bowel sounds, soft. ABSENT: distended, guarding, mass, organolmegaly, rebound, tenderness Rectal exam: PRESENT: deferred Extremities exam: PRESENT: full ROM. ABSENT: calf tenderness, clubbing, pedal edema Neurological exam: PRESENT: alert, awake, oriented to person Psychiatric exam: PRESENT: flat affect. ABSENT: homicidal ideation, suicidal ideation Skin exam: PRESENT: dry, intact, warm. ABSENT: cyanosis, rash Results Laboratory Results: 01/17/17 05:20 01/19/17 05:00 01/19/17 01/19/17 05:00 05:00 Sodium 138.3 Potassium 3.7 Chloride 98 Carbon Dioxide 26 Anion Gap 14 BUN 29 H Creatinine 0.93 Est GFR ( Amer) > 60 Est GFR (Non-Af Amer) > 60 Glucose 125 H Calcium 7.7 L Magnesium 2.1 Free T4 0.73 L Free T3 pg/mL 2.36 L 01/11/17 01/11/17 01/12/17 22:11 22:11 04:15 Creatine Kinase 311 H Troponin I 0.053 0.052 01/12/17 01/12/17 01/12/17 04:15 12:36 12:36 Creatine Kinase 263 H 243 H Troponin I 0.046 01/12/17 01/12/17 18:45 18:45 Creatine Kinase 239 H Troponin I 0.052 Impressions: Head CT 01/11/17 17:26 IMPRESSION: CHRONIC CHANGES OF ATROPHY AND MICROVASCULAR ISCHEMIA. NO ACUTE PROCESS. Acute Abdomen Series 01/11/17 17:30 IMPRESSION: Nonspecific abdomen. Densely sclerotic bone lesions that appear stable. Chest X-Ray 01/12/17 00:00 IMPRESSION: Basilar atelectasis. No focal consolidation. Findings are accentuated by low lung volumes. Renal Ultrasound 01/12/17 00:00 IMPRESSION: NORMAL RENAL AND BLADDER ULTRASOUND. KUB X-Ray 01/18/17 00:00 IMPRESSION: Gas pattern is nonspecific. There is widespread bony metastatic disease which is unchanged. Assessment & Plan - Diagnosis (1) Encephalopathy acute Is this a current diagnosis for this admission?: Yes Plan: Secondary to Myxedema: Will continue Synthroid. (2) Adult hypothyroidism Is this a current diagnosis for this admission?: Yes Plan: Will continue synthroid. (3) ARF (acute renal failure) Qualifiers: Acute renal failure type: unspecified Qualified Code(s): N17.9 - Acute kidney failure, unspecified Is this a current diagnosis for this admission?: Yes Plan: Secondary to Dehydration: Resolved. (4) Dehydration Is this a current diagnosis for this admission?: Yes Plan: Resolved. (5) Hyponatremia Is this a current diagnosis for this admission?: Yes Plan: Resolved. 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 Pt has agreed to hospice. (7) Elevated LFTs Is this a current diagnosis for this admission?: Yes Plan: We will monitor. (8) Elevated troponin Is this a current diagnosis for this admission?: Yes Plan: Patient is chest pain-free. Elevated troponins are secondary to patient's acute renal injury. (9) Atrial fibrillation Qualifiers: Atrial fibrillation type: chronic Qualified Code(s): I48.2 - Chronic atrial fibrillation Is this a current diagnosis for this admission?: Yes Plan: Continue Metoprolol. Family agreed to stop Coumadin. (10) DVT prophylaxis Is this a current diagnosis for this admission?: Yes Plan: SCDs - Time Time Spent with patient: 15-24 minutes
[2017-01-19] MEDS: SENNOSIDES/DOCUSATE 8.6-50 MG 1 EACH TABLET PO SCH (22:35)
--- NOTE | 2017-01-19 23:32 | Progress Note ---
Provider Note Provider Note: Palliative care follow up visit 01/19/17 11:10- 11:25AM S: Patient awake in bed , having a lot of abdominal pain and cramping. Finally had BM with some relief. Son at bedside. Patient warm and has pink color today as opposed to pallor noted yesterday. He is more alert and denies pain today. Spoke with son about plans to move patient to [facility]. He said he wants him to have hospice while there. I explained that if he is going under medicare rehab time he will not be able to have hospice until rehab days are exhausted. he said he didnt understand any of this and asked me to speak with his aunt about it. O; Patient more alert, and appears a little stronger. Cheerful today. Color improved, skin warm and dry. Respirations only slightly labored with conversation. Some noted cough. Abd full and soft, still having some pain and cramping in spite of passing large BM No edema lower extremities. A/P: Metastatic prostate cancer: severe weakness, pain less with steroids and tramadol. Denies other pain ABd pain: related to constipation, passing some flatus and has had BM today. Weakness and inability to live independently: No one in family available to care for patient at home so he is going to [facility]. Son thinks he will be transferred today or tomorrow. Spoke with patients sister on telephone to explain that patient will be oing to SNF under Medicare benefit for for rehab and so Medicare will not pay for hospice at the same time. She wants him to have hospice but after she understood the benefit she agreed to ask for Palliative Care to folow at SNF. She said she wants patient transferred to [facility] in [place] as soon as it is appropriate. Explained GIP requirements. Residential stay at [facility] hospice has a daily rate payable by family. Son work in [place] near SNF and will be able to visit his father often. Will ask hospice liason to follow patient at SNF if palliative care consult not written after transfer. Support given to son and sister who are struggling with this decision. No further recommendations.
[2017-01-20] MEDS: DEXAMETHASONE SOD PHOSPHATE INJ 4 MG/1 ML VIAL IV SCH ×5 (00:05→23:42)
[2017-01-20] MEDS: LANSOPRAZOLE 15 MG TAB.RAP.DR PO SCH (05:46)
[2017-01-20] MEDS: LEVOTHYROXINE SODIUM 0.1 MG TABLET PO SCH (05:46)
[2017-01-20 06:07] LABS: HEMATOCRIT 33.4 % (37.9-51.0); HEMOGLOBIN 11.3 g/dL (13.5-17.0); HGB HCT DIFFERENCE 0.5; MEAN CORPUSCULAR HEMOGLOBIN 31.5 pg (27.0-33.4); MEAN CORPUSCULAR HGB CONC 33.8 g/dL (32.0-36.0); MEAN CORPUSCULAR VOLUME 93 fl (80-97); RED BLOOD COUNT 3.58 10^6/uL (4.35-5.55); RED CELL DISTRIBUTION WIDTH 22.3 % (11.5-14.0)
[2017-01-20 06:43] LABS: BASOPHILS % (MANUAL) 0 % (0-2); EOSINOPHILS % (MANUAL) 0 % (0-6); LYMPHOCYTES % (MANUAL) 6 % (13-45); TOTAL CELLS COUNTED 100
[2017-01-20 06:44] LABS: NUCLEATED RED BLOOD CELLS 10 /100 WBC (0)
[2017-01-20 06:47] LABS: ANION GAP 11 (5-19); ANISOCYTOSIS 3+; BLOOD UREA NITROGEN 28 mg/dL (7-20); BURR CELLS SLIGHT; CARBON DIOXIDE 29 mmol/L (22-30); CHLORIDE 100 mmol/L (98-107); GLUCOSE 121 mg/dL (75-110); OVALOCYTES SLIGHT; POIKILOCYTOSIS 1+; POLYCHROMASIA 1+; POTASSIUM 3.4 mmol/L (3.6-5.0); SODIUM 139.8 mmol/L (137-145); TOXIC GRANULATION SLIGHT; TOXIC VACUOLATION PRESENT
[2017-01-20 06:48] LABS: WHITE BLOOD COUNT 15.2 10^3/uL (4.0-10.5)
[2017-01-20] MEDS: TRAMADOL HCL 50 MG TABLET PO PRN (08:23)
[2017-01-20] MEDS ORDERED: POTASSIUM CHLORIDE 10 MEQ TABLET.SA PO ONE (08:30)
[2017-01-20] MEDS: LEVOFLOXACIN 750 MG TABLET PO SCH (10:26)
[2017-01-20] MEDS: METOPROLOL SUCCINATE 50 MG TAB.SR.24H PO SCH ×2 (10:27→21:52)
[2017-01-20] MEDS: DOCUSATE SODIUM 100 MG CAPSULE PO SCH ×2 (10:27→18:40)
[2017-01-20] MEDS: TRAMADOL HCL 50 MG TABLET PO SCH (10:28)
[2017-01-20] MEDS: LIOTHYRONINE SODIUM 5 MCG TABLET PO SCH (10:28)
--- NOTE | 2017-01-20 13:38 | PDOC PROGRESS REPORT ---
Subjective Progress Note for:: 01/20/17 Subjective:: Pt voiced no complaints. Physical Exam Vital Signs: Temp Pulse Resp BP Pulse Ox 97.4 F 70 24 H 168/97 H 91 L 01/20/17 07:40 01/20/17 07:40 01/20/17 07:40 01/20/17 07:40 01/20/17 07:40 Intake & Output 01/19/17 01/20/17 01/21/17 06:59 06:59 06:59 Intake Total 640 130 Output Total 1075 375 Balance -435 -245 Weight 105.6 kg 105.6 kg General appearance: PRESENT: no acute distress, well-developed, well-nourished Head exam: PRESENT: atraumatic, normocephalic Eye exam: PRESENT: conjunctiva pink, EOMI. ABSENT: scleral icterus Ear exam: PRESENT: normal external ear exam Mouth exam: PRESENT: moist, tongue midline Neck exam: ABSENT: carotid bruit, JVD, lymphadenopathy, thyromegaly Respiratory exam: PRESENT: clear to auscultation navi. ABSENT: rales, rhonchi, wheezes Cardiovascular exam: PRESENT: RRR. ABSENT: diastolic murmur, rubs, systolic murmur Pulses: PRESENT: normal dorsalis pedis pul Vascular exam: PRESENT: normal capillary refill GI/Abdominal exam: PRESENT: normal bowel sounds, soft. ABSENT: distended, guarding, mass, organolmegaly, rebound, tenderness Rectal exam: PRESENT: deferred Extremities exam: PRESENT: full ROM. ABSENT: calf tenderness, clubbing, pedal edema Neurological exam: PRESENT: alert, awake, oriented to person, CN II-XII grossly intact. ABSENT: motor sensory deficit Psychiatric exam: PRESENT: appropriate affect, normal mood. ABSENT: homicidal ideation, suicidal ideation Skin exam: PRESENT: dry, intact, warm. ABSENT: cyanosis, rash Results Laboratory Results: 01/20/17 05:55 01/20/17 05:55 01/20/17 01/20/17 05:55 05:55 WBC 15.2 H RBC 3.58 L Hgb 11.3 L Hct 33.4 L MCV 93 MCH 31.5 MCHC 33.8 RDW 22.3 H Plt Count 104 L Seg Neutrophils % Not Reportable Lymphocytes % Not Reportable Monocytes % Not Reportable Eosinophils % Not Reportable Basophils % Not Reportable Absolute Neutrophils Not Reportable Absolute Lymphocytes Not Reportable Absolute Monocytes Not Reportable Absolute Eosinophils Not Reportable Absolute Basophils Not Reportable Sodium 139.8 Potassium 3.4 L Chloride 100 Carbon Dioxide 29 Anion Gap 11 BUN 28 H Creatinine 0.90 Est GFR ( Amer) > 60 Est GFR (Non-Af Amer) > 60 Glucose 121 H Calcium 8.0 L 01/11/17 01/11/17 01/12/17 22:11 22:11 04:15 Creatine Kinase 311 H Troponin I 0.053 0.052 01/12/17 01/12/17 01/12/17 04:15 12:36 12:36 Creatine Kinase 263 H 243 H Troponin I 0.046 01/12/17 01/12/17 18:45 18:45 Creatine Kinase 239 H Troponin I 0.052 Impressions: Head CT 01/11/17 17:26 IMPRESSION: CHRONIC CHANGES OF ATROPHY AND MICROVASCULAR ISCHEMIA. NO ACUTE PROCESS. Acute Abdomen Series 01/11/17 17:30 IMPRESSION: Nonspecific abdomen. Densely sclerotic bone lesions that appear stable. Chest X-Ray 01/12/17 00:00 IMPRESSION: Basilar atelectasis. No focal consolidation. Findings are accentuated by low lung volumes. Renal Ultrasound 01/12/17 00:00 IMPRESSION: NORMAL RENAL AND BLADDER ULTRASOUND. KUB X-Ray 01/18/17 00:00 IMPRESSION: Gas pattern is nonspecific. There is widespread bony metastatic disease which is unchanged. Assessment & Plan - Diagnosis (1) Encephalopathy acute Is this a current diagnosis for this admission?: Yes Plan: Secondary to Myxedema: Will continue Synthroid. (2) Adult hypothyroidism Is this a current diagnosis for this admission?: Yes Plan: Will continue synthroid. (3) Hypertension Qualifiers: Hypertension type: essential hypertension Qualified Code(s): I10 - Essential (primary) hypertension Is this a current diagnosis for this admission?: Yes Plan: Will add Norvasc and Hydralazine with parameters to treatment plan. Will continue metoprolol. (4) ARF (acute renal failure) Qualifiers: Acute renal failure type: unspecified Qualified Code(s): N17.9 - Acute kidney failure, unspecified Is this a current diagnosis for this admission?: Yes Plan: Secondary to Dehydration: Resolved. (5) Dehydration Is this a current diagnosis for this admission?: Yes Plan: Resolved. (6) Hyponatremia Is this a current diagnosis for this admission?: Yes Plan: Resolved. (7) Prostate cancer metastatic to multiple sites Is this a current diagnosis for this admission?: Yes Plan: Per Oncology. Pt has agreed to hospice. (8) Elevated LFTs Is this a current diagnosis for this admission?: Yes Plan: We will monitor. (9) Elevated troponin Is this a current diagnosis for this admission?: Yes Plan: Patient is chest pain-free. Elevated troponins are secondary to patient's acute renal injury. (10) Atrial fibrillation Qualifiers: Atrial fibrillation type: chronic Qualified Code(s): I48.2 - Chronic atrial fibrillation Is this a current diagnosis for this admission?: Yes Plan: Continue Metoprolol. Family agreed to stop Coumadin. (11) DVT prophylaxis Is this a current diagnosis for this admission?: Yes Plan: SCDs - Time Time Spent with patient: 25-34 minutes
[2017-01-20] MEDS ORDERED: AMLODIPINE BESYLATE 10 MG TABLET PO ONE (14:30)
[2017-01-20] MEDS: HYDRALAZINE HCL 25 MG TABLET PO SCH ×2 (15:39→21:52)
[2017-01-20 16:46] LABS: PATH REVIEW PATHOLOGIST REVIEWED
[2017-01-20] MEDS: SENNOSIDES/DOCUSATE 8.6-50 MG 1 EACH TABLET PO SCH (21:52)
[2017-01-21] MEDS: DEXAMETHASONE SOD PHOSPHATE INJ 4 MG/1 ML VIAL IV SCH ×4 (05:56→23:54)
[2017-01-21] MEDS: LEVOTHYROXINE SODIUM 0.1 MG TABLET PO SCH (05:56)
[2017-01-21] MEDS: HYDRALAZINE HCL 25 MG TABLET PO SCH ×3 (05:56→21:41)
[2017-01-21] MEDS: LANSOPRAZOLE 15 MG TAB.RAP.DR PO SCH (05:56)
[2017-01-21 09:18] LABS: ANION GAP 10 (5-19); BLOOD UREA NITROGEN 30 mg/dL (7-20); CALCIUM 8.7 mg/dL (8.4-10.2); CARBON DIOXIDE 28 mmol/L (22-30); CHLORIDE 103 mmol/L (98-107); CREATININE RESULT 0.87 mg/dL (0.52-1.25); GLUCOSE 96 mg/dL (75-110); POTASSIUM 3.9 mmol/L (3.6-5.0)
[2017-01-21] MEDS ORDERED: FUROSEMIDE INJ/PF 40 MG/4 ML SDV ONE ×2 (10:09→10:29)
[2017-01-21] MEDS ORDERED: IPRATROPIUM/ALBUTEROL 0.5-2.5 MG/3 ML AMPUL NEB ONE (10:30)
[2017-01-21] MEDS ORDERED: NA PHOS,M-B/NA PHOS,DI-BA (ADULT) 133 ML ENEMA PR ONE ×2 (10:52→14:40)
[2017-01-21] MEDS: LIOTHYRONINE SODIUM 5 MCG TABLET PO SCH (11:07)
[2017-01-21] MEDS: AMLODIPINE BESYLATE 10 MG TABLET PO SCH (11:08)
[2017-01-21] MEDS: DOCUSATE SODIUM 100 MG CAPSULE PO SCH ×2 (11:08→17:36)
[2017-01-21] MEDS: METOPROLOL SUCCINATE 50 MG TAB.SR.24H PO SCH ×2 (11:08→21:42)
[2017-01-21] MEDS: TRAMADOL HCL 50 MG TABLET PO PRN ×3 (11:09→23:54)
--- NOTE | 2017-01-21 12:25 | RADIOLOGY REPORT (SQ) ---
EXAM DESCRIPTION: CHEST SINGLE VIEW COMPLETED DATE/TIME: 01/21/2017 11:56 am REASON FOR STUDY: Shortness of breath COMPARISON: 01/12/2017 EXAM PARAMETERS: NUMBER OF VIEWS: One view. TECHNIQUE: Single frontal radiographic view of the chest acquired. RADIATION DOSE: NA LIMITATIONS: None. FINDINGS: LUNGS AND PLEURA: Pulmonary vascular congestion is present. Mild pulmonary edema is prese nt. MEDIASTINUM AND HILAR STRUCTURES: No masses. Contour normal. HEART AND VASCULAR STRUCTURES: Cardiomegaly. BONES: No acute findings. HARDWARE: An injection port is present on the right. Sternotomy wires. Graft markers. OTHER: No other significant finding. IMPRESSION: Cardiomegaly with mild pulmonary edema. TECHNICAL DOCUMENTATION: JOB ID: [id number]
[2017-01-21] MEDS: IPRATROPIUM/ALBUTEROL 0.5-2.5 MG/3 ML AMPUL NEB SCH ×3 (13:53→20:45)
--- NOTE | 2017-01-21 19:12 | Progress Note ---
Provider Note Provider Note: Palliative care follow up note: 01/21/17 !:30 PM Visit made with patient, his son and other visitors. Mr. James is asleep at present and having resp at 24 breaths per minute. He has a slight frown on his face, but no moaning. Son states that a while ago patient was crying out with pain and begging for relief. Son tells me that patient cannot be transferred to rehab untiil his bowels move. He did have BM two days ago. He is eating only bites and sips, but abd is distended and tender. Son said patient told him not to touch his abdomen today as it hurts when touched. Little urine output. Had to have lasix today as reported by son for respiratory distress. Son states he is finally accepting patients poor prognosis and knows he will probably soon. He has concerns about moving him to nursing hime. I told him that since his father has not improved with replacement thyroid, or other treatment, is having increased pain and severely decreased PO intake. He is having some respiratory struggle and would benefit from morphine for pain and dyspnea. In addition, to be realistic, this patient is not in any shape to be able to work with PT for rehab. His son says he doesnt want to see his dad suffer longer than he has to and he wants him to be able to get medicaitons as needed for comfort. He wants to talk with his aunt ( patient's sister) and he will ask her to clal me when they make up their mind. I received a call from patients sister at about 2:45 stating that they would like to have patient transferred to the [facility] in [facility] tomorrow. I told her I have asked the hospice liason nurse to send records to [facility] and ask to have patient put on list for bed tomorrow. O: Patient is having increased pain, ansome increased dyspnea today. VS fairly stable and patient is alert to talk with family at intervals, able to discuss pain. Skin w/d, not cold like several days ago, but he does look pale. A/P: Metastatic Prostate Cancer with widespread bpne mets. Pain has been controlled with the Dexamethasone QID but is getting worse now. I spoke with his niurse who said he would call hospitalist to get orders for morphine IV. Support given to patient's son and sister who are realistic about impending and want patient to recieve comfort care rather than rehab. They are willing to make the drive to visit and son may stay at facility with him. Will ask hospice liason RN to speak with hospitalist tomorrow about transferring patient to [facility] instead for rehab. DNR goldenrod form placed on patients chart for transport. Appreciate opportuinity to suppot this patient and family. Appreciate care being given to patient at [facility]. Total time visit and conversatons with son and patients sister: 45 min.
[2017-01-21] MEDS: SENNOSIDES/DOCUSATE 8.6-50 MG 1 EACH TABLET PO SCH (21:41)
[2017-01-22] MEDS: DEXAMETHASONE SOD PHOSPHATE INJ 4 MG/1 ML VIAL IV SCH ×2 (05:59→11:09)
[2017-01-22] MEDS: HYDRALAZINE HCL 25 MG TABLET PO SCH (06:00)
[2017-01-22] MEDS: LANSOPRAZOLE 15 MG TAB.RAP.DR PO SCH (06:00)
[2017-01-22] MEDS: LEVOTHYROXINE SODIUM 0.1 MG TABLET PO SCH (06:00)
[2017-01-22 06:36] LABS: ANION GAP 12 (5-19); BLOOD UREA NITROGEN 32 mg/dL (7-20); CALCIUM 8.9 mg/dL (8.4-10.2); CARBON DIOXIDE 31 mmol/L (22-30); CHLORIDE 99 mmol/L (98-107); CREATININE RESULT 0.94 mg/dL (0.52-1.25); GLUCOSE 147 mg/dL (75-110); POTASSIUM 4.1 mmol/L (3.6-5.0); SODIUM 142.4 mmol/L (137-145)
[2017-01-22 07:03] LABS: HEMATOCRIT 35.9 % (37.9-51.0); HEMOGLOBIN 11.9 g/dL (13.5-17.0); HGB HCT DIFFERENCE -0.2; MEAN CORPUSCULAR HEMOGLOBIN 31.5 pg (27.0-33.4); MEAN CORPUSCULAR HGB CONC 33.2 g/dL (32.0-36.0); MEAN CORPUSCULAR VOLUME 95 fl (80-97); RED BLOOD COUNT 3.78 10^6/uL (4.35-5.55); RED CELL DISTRIBUTION WIDTH 22.9 % (11.5-14.0); WHITE BLOOD COUNT 17.7 10^3/uL (4.0-10.5)
[2017-01-22 07:15] LABS: BASOPHILS % (MANUAL) 0 % (0-2); EOSINOPHILS % (MANUAL) 0 % (0-6); LYMPHOCYTES % (MANUAL) 2 % (13-45); NUCLEATED RED BLOOD CELLS 5 /100 WBC (0); TOTAL CELLS COUNTED 100
[2017-01-22 07:16] LABS: BURR CELLS SLIGHT; OVALOCYTES SLIGHT; POIKILOCYTOSIS SLIGHT; POLYCHROMASIA SLIGHT; SCHISTOCYTES SLIGHT; TEAR DROP CELLS SLIGHT; TOXIC GRANULATION 1+; TOXIC VACUOLATION PRESENT
[2017-01-22] MEDS ORDERED: FUROSEMIDE INJ/PF 40 MG/4 ML SDV IV ONE (07:30)
[2017-01-22] MEDS: IPRATROPIUM/ALBUTEROL 0.5-2.5 MG/3 ML AMPUL NEB SCH (07:31)
[2017-01-22] MEDS: METOPROLOL SUCCINATE 50 MG TAB.SR.24H PO SCH (09:56)
[2017-01-22] MEDS: AMLODIPINE BESYLATE 10 MG TABLET PO SCH (09:56)
[2017-01-22] MEDS: DOCUSATE SODIUM 100 MG CAPSULE PO SCH (09:57)
[2017-01-22] MEDS: LIOTHYRONINE SODIUM 5 MCG TABLET PO SCH (09:57)
--- NOTE | 2017-01-22 10:13 | PDOC PROGRESS REPORT ---
Subjective Progress Note for:: 01/22/17 Subjective:: Pt states that he is doing much better. Nursing states that pt has been stable overnight. Physical Exam Vital Signs: Temp Pulse Resp BP Pulse Ox 98.3 F 72 18 103/82 92 01/22/17 08:12 01/22/17 08:12 01/22/17 08:12 01/22/17 08:12 01/22/17 08:12 Intake & Output 01/21/17 01/22/17 01/23/17 06:59 06:59 06:59 Intake Total 960 420 Output Total 1200 Balance 960 -780 Weight 105.6 kg 105.6 kg General appearance: PRESENT: no acute distress, well-developed, well-nourished Head exam: PRESENT: atraumatic, normocephalic Eye exam: PRESENT: conjunctiva pink, EOMI. ABSENT: scleral icterus Ear exam: PRESENT: normal external ear exam Mouth exam: PRESENT: moist, tongue midline Neck exam: ABSENT: carotid bruit, JVD, lymphadenopathy, thyromegaly Respiratory exam: PRESENT: clear to auscultation navi. ABSENT: rales, rhonchi, wheezes Cardiovascular exam: PRESENT: RRR. ABSENT: diastolic murmur, rubs, systolic murmur Pulses: PRESENT: normal dorsalis pedis pul Vascular exam: PRESENT: normal capillary refill GI/Abdominal exam: PRESENT: normal bowel sounds, soft. ABSENT: distended, guarding, mass, organolmegaly, rebound, tenderness Extremities exam: PRESENT: full ROM. ABSENT: calf tenderness, clubbing, pedal edema Neurological exam: PRESENT: alert, awake, oriented to person, CN II-XII grossly intact. ABSENT: motor sensory deficit Psychiatric exam: PRESENT: flat affect, normal mood. ABSENT: homicidal ideation , suicidal ideation Skin exam: PRESENT: dry, intact, warm. ABSENT: cyanosis, rash Results Laboratory Results: 01/22/17 05:46 01/22/17 05:46 01/22/17 01/22/17 05:46 05:46 WBC 17.7 H RBC 3.78 L Hgb 11.9 L Hct 35.9 L MCV 95 MCH 31.5 MCHC 33.2 RDW 22.9 H Plt Count 88 L Seg Neutrophils % Not Reportable Lymphocytes % Not Reportable Monocytes % Not Reportable Eosinophils % Not Reportable Basophils % Not Reportable Absolute Neutrophils Not Reportable Absolute Lymphocytes Not Reportable Absolute Monocytes Not Reportable Absolute Eosinophils Not Reportable Absolute Basophils Not Reportable Sodium 142.4 Potassium 4.1 Chloride 99 Carbon Dioxide 31 H Anion Gap 12 BUN 32 H Creatinine 0.94 Est GFR ( Amer) > 60 Est GFR (Non-Af Amer) > 60 Glucose 147 H Calcium 8.9 01/11/17 01/11/17 01/12/17 22:11 22:11 04:15 Creatine Kinase 311 H Troponin I 0.053 0.052 01/12/17 01/12/17 01/12/17 04:15 12:36 12:36 Creatine Kinase 263 H 243 H Troponin I 0.046 01/12/17 01/12/17 18:45 18:45 Creatine Kinase 239 H Troponin I 0.052 Impressions: Head CT 01/11/17 17:26 IMPRESSION: CHRONIC CHANGES OF ATROPHY AND MICROVASCULAR ISCHEMIA. NO ACUTE PROCESS. Acute Abdomen Series 01/11/17 17:30 IMPRESSION: Nonspecific abdomen. Densely sclerotic bone lesions that appear stable. Renal Ultrasound 01/12/17 00:00 IMPRESSION: NORMAL RENAL AND BLADDER ULTRASOUND. KUB X-Ray 01/18/17 00:00 IMPRESSION: Gas pattern is nonspecific. There is widespread bony metastatic disease which is unchanged. Chest X-Ray 01/21/17 00:00 IMPRESSION: Cardiomegaly with mild pulmonary edema. Assessment & Plan - Diagnosis (1) Encephalopathy acute Is this a current diagnosis for this admission?: Yes Plan: Secondary to Myxedema: Will continue Synthroid. (2) Adult hypothyroidism Is this a current diagnosis for this admission?: Yes Plan: Will continue synthroid. (3) Hypertension Qualifiers: Hypertension type: essential hypertension Qualified Code(s): I10 - Essential (primary) hypertension Is this a current diagnosis for this admission?: Yes Plan: Will discontinue Hydralazine. Will continue other medications. (4) ARF (acute renal failure) Qualifiers: Acute renal failure type: unspecified Qualified Code(s): N17.9 - Acute kidney failure, unspecified Is this a current diagnosis for this admission?: Yes Plan: Secondary to Dehydration: Resolved. (5) Dyspnea Qualifiers: Dyspnea type: shortness of breath Qualified Code(s): R06.02 - Shortness of breath; R06.00 - Dyspnea, unspecified; R06.01 - Orthopnea Is this a current diagnosis for this admission?: Yes Plan: Most likely Secondary to Volume Overload: Will give additional Lasix. (6) Volume overload Qualifiers: Hypervolemia type: unspecified Qualified Code(s): E87.70 - Fluid overload, unspecified Is this a current diagnosis for this admission?: Yes Plan: Will give additional Lasix. (7) Dehydration Is this a current diagnosis for this admission?: Yes Plan: Resolved. (8) Hyponatremia Is this a current diagnosis for this admission?: Yes Plan: Resolved. 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 Pt has agreed to hospice. (10) Elevated LFTs Is this a current diagnosis for this admission?: Yes Plan: We will monitor. (11) Elevated troponin Is this a current diagnosis for this admission?: Yes Plan: Patient is chest pain-free. Elevated troponins are secondary to patient's acute renal injury. (12) Atrial fibrillation Qualifiers: Atrial fibrillation type: chronic Qualified Code(s): I48.2 - Chronic atrial fibrillation Is this a current diagnosis for this admission?: Yes Plan: Continue Metoprolol. Family agreed to stop Coumadin. (13) Pneumonia Qualifiers: Pneumonia type: due to Pseudomonas Laterality: unspecified laterality Lung location: unspecified part of lung Qualified Code(s): J15.1 - Pneumonia due to Pseudomonas Is this a current diagnosis for this admission?: Yes Plan: Secondary to Pseudomonas: Will continue Levaquin. (14) COPD (chronic obstructive pulmonary disease) Qualifiers: COPD type: unspecified COPD Qualified Code(s): J44.9 - Chronic obstructive pulmonary disease, unspecified Is this a current diagnosis for this admission?: Yes Plan: Pt currently not experiencing COPD exacerbation. (15) DVT prophylaxis Is this a current diagnosis for this admission?: Yes Plan: SCDs - Time Time Spent with patient: 15-24 minutes
[2017-01-22] MEDS ORDERED: LEVOFLOXACIN 750 MG TABLET PO ONE (11:00)
[2017-01-22] MEDS: ONDANSETRON 4 MG TAB.RAPDIS PO PRN (13:09)
--- NOTE | 2017-01-22 13:31 | PDOC DISCHARGE SUMMARY ---
General - Admit/Disc Date/PCP Admission Date/Primary Care Provider: 01/11/17 18:46 SHAD REYNA MD Discharge Date: 01/22/17 - Discharge Diagnosis (1) Encephalopathy acute Is this a current diagnosis for this admission?: Yes Summary: Secondary to Myxedema: Synthroid (2) Adult hypothyroidism Is this a current diagnosis for this admission?: Yes Summary: Continue Synthroid (3) Hypertension Is this a current diagnosis for this admission?: Yes Summary: Will continue blood pressure medication. (4) ARF (acute renal failure) Is this a current diagnosis for this admission?: Yes Summary: Secondary to Dehydration: Pt given IVF and renal function improved. (5) Dyspnea Is this a current diagnosis for this admission?: Yes Summary: Secondary to Volume Overload: Pt was given Lasix X 2. (6) Volume overload Is this a current diagnosis for this admission?: Yes Summary: Pt given Lasix X 2. (7) Dehydration Is this a current diagnosis for this admission?: Yes Summary: Resolved with IVF. (8) Hyponatremia Is this a current diagnosis for this admission?: Yes Summary: resolved. 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 (10) Elevated LFTs Is this a current diagnosis for this admission?: Yes Summary: supportive care. (11) Elevated troponin Is this a current diagnosis for this admission?: Yes Summary: Secondary to Acute Renal Injury: Supportive care. (12) Atrial fibrillation Is this a current diagnosis for this admission?: Yes Summary: Continue Metoprolol. Family does not want coumadin. (13) Pneumonia Is this a current diagnosis for this admission?: Yes Summary: Secondary Pseudomonas: Will continue Levaquin. (14) COPD (chronic obstructive pulmonary disease) Is this a current diagnosis for this admission?: Yes Summary: No evidence of Exacerbation during this admission. - Additional Information Resuscitation Status: Full Code Discharge Diet: As Tolerated Home Medications: Atorvastatin Calcium [Lipitor 40 mg Tablet] 40 mg PO QHS 01/11/17 Calcium Carbonate/Vitamin D3 [Calcium 600 + Vit D 400 Tablet] 1 tab PO DAILY 03/19 Multivitamin/Iron/Folic Acid [Centrum Adults Tablet] 1 each PO DAILY 01/11/17 Acetaminophen [Tylenol 325 mg Tablet] 650 mg PO Q4HP PRN tablet 01/22/17 Albuterol Sulfate [Proair HFA Inhalation Aerosol 8.5 gm MDI] 2 puff IH Q4HP PRN hfa.aer.ad 01/22/17 Amlodipine Besylate [Norvasc 10 mg Tablet] 10 mg PO DAILY tablet 01/22/17 Levofloxacin [Levaquin 750 mg Tablet] 750 mg PO DAILY #5 tablet 01/22/17 Levothyroxine Sodium [Synthroid 0.1 mg Tablet] 0.1 mg PO Q6AM tablet 01/22/17 Metoprolol Succinate [Toprol Xl 50 mg Tab.sr] 100 mg PO Q12 tab.sr.24h Ondansetron [Zofran Odt 4 mg Tablet] 4 mg PO Q6HP PRN tab.rapdis 01/22/17 Sennosides/Docusate 8.6-50 mg [Senna Plus Tablet] 2 each PO QHS tablet History of Present Illness Patient complains of: Poor Appetite History of Present Illness: SONNY SNOWDEN is a 82 year old male who presents to our emergency room with complaints of decreased eating and drinking for the last few days. Patient is a poor historian and no one is in room. History obtained from nurse. Nurse states that sister reported that patient has not been eating for the last few days and she has noticed that he has been more confused. Nurse reports that sister states that he is confused regularly but it has worsened over the last few days. ER physician who did not know much about patient's presentation reported that patient presented to the Rad Onc physician where he noticed that patient did not appear well. ER physician states that patient was directed to the emergency room. ER physician notes that patient's creatinine is elevated from his baseline. She also notes that patient is not able to give much history. Patient was aware that he was in the hospital but did not remember how he arrived. Patient was alert and oriented to self and location only. Patient was not able to give year. Patient was able to give date of . Hospital Course Hospital Course: Patient is a 82-year-old gentleman that was admitted to our hospital due to poor appetite. Patient was found to have pneumonia secondary to Pseudomonas and therefore was placed on Levaquin. Patient was also found to be severely dehydrated and therefore was given IV fluids. Patient was noted to have acute renal injury secondary to dehydration but this resolved with IV fluid administration. Patient was found to have severe hypothyroidism/myxedema and was placed on Synthroid. Patient had known history of metastatic prostate cancer therefore family made the decision to make patient hospice. Initial plan was for patient to go to per meter and then to hospice however patient agreed to inpatient hospice. Family had made decision to discontinue Coumadin. Physical Exam Vital Signs: Temp Pulse Resp BP Pulse Ox 98.3 F 72 18 103/82 92 01/22/17 08:12 01/22/17 08:12 01/22/17 08:12 01/22/17 08:12 01/22/17 08:12 Intake & Output 01/21/17 01/22/17 01/23/17 06:59 06:59 06:59 Intake Total 960 420 Output Total 1200 Balance 960 -780 Weight 105.6 kg 105.6 kg General appearance: PRESENT: no acute distress, well-developed, well-nourished Head exam: PRESENT: atraumatic, normocephalic Eye exam: PRESENT: conjunctiva pink, EOMI. ABSENT: scleral icterus Ear exam: PRESENT: normal external ear exam Mouth exam: PRESENT: moist, tongue midline Neck exam: ABSENT: carotid bruit, JVD, lymphadenopathy, thyromegaly Cardiovascular exam: PRESENT: irregular rhythm Pulses: PRESENT: normal dorsalis pedis pul GI/Abdominal exam: PRESENT: normal bowel sounds, soft. ABSENT: distended, guarding, mass, organolmegaly, rebound, tenderness Rectal exam: PRESENT: deferred Extremities exam: PRESENT: full ROM. ABSENT: calf tenderness, clubbing, pedal edema Neurological exam: PRESENT: alert, awake, oriented to person Results Laboratory Results: 01/22/17 05:46 01/22/17 05:46 01/22/17 01/22/17 05:46 05:46 WBC 17.7 H RBC 3.78 L Hgb 11.9 L Hct 35.9 L MCV 95 MCH 31.5 MCHC 33.2 RDW 22.9 H Plt Count 88 L Seg Neutrophils % Not Reportable Lymphocytes % Not Reportable Monocytes % Not Reportable Eosinophils % Not Reportable Basophils % Not Reportable Absolute Neutrophils Not Reportable Absolute Lymphocytes Not Reportable Absolute Monocytes Not Reportable Absolute Eosinophils Not Reportable Absolute Basophils Not Reportable Sodium 142.4 Potassium 4.1 Chloride 99 Carbon Dioxide 31 H Anion Gap 12 BUN 32 H Creatinine 0.94 Est GFR ( Amer) > 60 Est GFR (Non-Af Amer) > 60 Glucose 147 H Calcium 8.9 01/11/17 01/11/17 01/12/17 22:11 22:11 04:15 Creatine Kinase 311 H Troponin I 0.053 0.052 01/12/17 01/12/17 01/12/17 04:15 12:36 12:36 Creatine Kinase 263 H 243 H Troponin I 0.046 01/12/17 01/12/17 18:45 18:45 Creatine Kinase 239 H Troponin I 0.052 Impressions: Head CT 01/11/17 17:26 IMPRESSION: CHRONIC CHANGES OF ATROPHY AND MICROVASCULAR ISCHEMIA. NO ACUTE PROCESS. Acute Abdomen Series 01/11/17 17:30 IMPRESSION: Nonspecific abdomen. Densely sclerotic bone lesions that appear stable. Renal Ultrasound 01/12/17 00:00 IMPRESSION: NORMAL RENAL AND BLADDER ULTRASOUND. KUB X-Ray 01/18/17 00:00 IMPRESSION: Gas pattern is nonspecific. There is widespread bony metastatic disease which is unchanged. Chest X-Ray 01/21/17 00:00 IMPRESSION: Cardiomegaly with mild pulmonary edema. Plan Time Spent: Greater than 30 Minutes
[2017-01-22 13:35] VITALS: BP 107/73
[2017-01-23] MEDS ORDERED: LEVOFLOXACIN 750 MG TABLET PO SCH (10:00)
== END 2017-01-22 13:51 | disposition hospice, inpatient (51) | DRG 190 ==
LOC: ER 15:32 → UNDOADMOB 18:20 → EH 18:20 → INTOOBSV 18:20 → EH 18:46 → OBSVTOIN 18:46 → EH 21:03 → 3N 21:03 → 4N 22:55
PROVIDERS: ADMIT Emergency Medicine
DX: J44.0 Chronic obstructive pulmonary disease with (acute) lower respiratory infection (principal); J15.1 Pneumonia due to Pseudomonas; G93.40 Encephalopathy, unspecified; N17.9 Acute kidney failure, unspecified; E87.1 Hypo-osmolality and hyponatremia; C78.7 Secondary malignant neoplasm of liver and intrahepatic bile duct; C79.51 Secondary malignant neoplasm of bone; I13.0 Hypertensive heart and chronic kidney disease with heart failure and stage 1 through stage 4 chronic kidney disease, or unspecified chronic kidney disease; Z66 Do not resuscitate; Z51.5 Encounter for palliative care; C61 Malignant neoplasm of prostate; N18.3 Chronic kidney disease, stage 3 (moderate); I50.9 Heart failure, unspecified; E86.0 Dehydration; I48.2 Chronic atrial fibrillation; E03.9 Hypothyroidism, unspecified; Z79.899 Other long term (current) drug therapy; Z88.8 Allergy status to other drugs, medicaments and biological substances; Z85.828 Personal history of other malignant neoplasm of skin; Z86.14 Personal history of Methicillin resistant Staphylococcus aureus infection; Z90.49 Acquired absence of other specified parts of digestive tract; Z95.1 Presence of aortocoronary bypass graft
CPT/HCPCS: 36415; 36591; 51701; 70450; 71010; 71020; 74000; 74022; 76770; 80048; 80053; 81001; 82550; 82553; 82803; 82962; 83605; 83690; 83735; 84100; 84439; 84443; 84481; 84484; 85025; 85610; 87040; 87070; 87077; 87086; 87186; 87205; 94640; 94799; 96374; 99285; G8978-GP; G8979-GP; J1100; J1940; J2405; J2543; J3490; J7030; J7620; S0119